=== PATIENT | female | born 1950 | race Caucasian/White ===

== ENCOUNTER 2023-09-22 19:58 | Inpatient (IN) | payer MEDICARE, SELFPAY ==
--- NOTE | 2023-09-22 | ECG_ITS ---
Test Reason : CHEST PAIN Blood Pressure : / mmHG Vent. Rate : 118 BPM Atrial Rate : 118 BPM P-R Int : 144 ms QRS Dur : 080 ms QT Int : 338 ms P-R-T Axes : 054 026 045 degrees QTc Int : 473 ms Sinus tachycardia Otherwise normal ECG No previous ECGs available Referred By: Generic ED Physician Electronically Signed By:NAM LLANOS MD
--- NOTE | ~2023-09-22 | CT_ITS ---
EXAMINATION: CT ANGIOGRAM OF THE CHEST WITH CONTRAST (CT PULMONARY ANGIOGRAM FOR PE) CLINICAL INFORMATION: Reason for Exam Bilateral PE COMPARISON: None available. TECHNIQUE: Prior to contrast administration, noncontrast localization images were obtained. Subsequently, multidetector volumetric imaging was performed from the thoracic inlet to below the diaphragms following the administration of 85 mL Omnipaque 350 intravenous contrast. No contrast reaction reported Sagittal, coronal, and MIP oblique sagittal reformatted images were obtained on the CT workstation, uploaded to PACS, and reviewed. This CT examination was performed using dose optimization techniques as appropriate, variously including the following: *Automated exposure control *Adjustment of mA and/or kV according to patient size (this includes techniques or standardized protocols for targeted exams where dose is matched to indication/reason for exam; i.e. extremities or head) *Use of iterative reconstruction technique Total exam dose-length product 428 mGy-cm FINDINGS: QUALITY OF STUDY/CONTRAST BOLUS: Suboptimal due to late bolus timing. The contrast timing is systemic arterial and not pulmonary arterial. PULMONARY ARTERIES: Sensitivity and specificity for pulmonary emboli is slightly limited due to the diminished contrast concentration within the pulmonary arteries. Acute pulmonary emboli are suspected within the segmental and subsegmental branches of the right lower and right middle lobes as well as the left lower lobe. Pulmonary arteries are normal in caliber. THORACIC AORTA: No aneurysm. LUNG: Minimal dependent atelectasis in the lower lobes. No consolidation, pneumothorax, or pleural effusion. Central airways are clear. PLEURA: No pleural effusion or pneumothorax. MEDIASTINUM: Normal heart size. No pericardial effusion. No hilar or mediastinal lymphadenopathy. No evidence of septal bowing or right heart strain. Small sliding-type hiatal hernia. CORONARY ARTERY CALCIFICATION: None visualized on this study. CHEST WALL/AXILLA: No axillary or internal mammary lymphadenopathy. OSSEOUS STRUCTURES: Diffuse idiopathic hyperostosis is evident in the midthoracic spine. No acute fractures. UPPER ABDOMEN: The common bile duct is dilated, likely related to prior cholecystectomy. No reflux of contrast into the hepatic veins to suggest elevated right heart pressures. CT/CT angio chest PE protocol IMPRESSION: Acute pulmonary emboli in the segmental and subsegmental branches of the right middle and lower lobes as well as the left lower lobe. No evidence of right heart strain. Sensitivity and specificity of this study are somewhat limited by bolus timing. VTE: positive.
--- NOTE | ~2023-09-22 | XR_ITS ---
EXAMINATION: XR CHEST CLINICAL INFORMATION: Chest pain. Shortness of breath. COMPARISON: None available. TECHNIQUE: Frontal view of the chest was obtained. FINDINGS: The heart is normal in size. The lungs are clear. There is no pleural effusion or pneumothorax. No acute osseous abnormality. XR/XR chest 1V IMPRESSION: No acute cardiopulmonary disease.
[2023-09-22 20:02] VITALS: BP 153/72; BP 158/88; PULSE 120; PULSE 123; RESP 14; TEMP 37.1; O2SAT 95; O2SAT 97; BMI 37.2
[2023-09-22 20:31] LABS: MANUAL DIFF FLAG NO
[2023-09-22 20:49] LABS: Lipase 28 U/L (8-78)
[2023-09-22 20:54] LABS: INTERNATIONAL NORM RATIO 1.5 (0.9-1.1); Prothrombin Time 17.7 SEC (11.1-13.3)
[2023-09-22 20:58] LABS: Basophils Percent Auto 0.5 % (0-2); Hematocrit 23.8 % (37.0-47.0); Hemoglobin 7.8 g/dl (12.0-16.0); Imm Gran Abs Auto 0.12 X10*3/uL (0.00-0.03); Imm Gran Pct Auto 1.4 % (0.0-0.4); Lymphocytes Absolute Auto 0.8 X10*3/uL (1.2-4.9); Mean Corpuscular HGB Conc 32.8 g/dl (31.0-35.0); Mean Corpuscular Hemoglobin 28.7 pg (27.0-33.0); Mean Corpuscular Volume 87.5 fL (80.0-98.0); Mean Platelet Volume 10.3 fL (9.4-12.3); Monocytes Absolute Auto 0.1 X10*3/uL (0.1-1.2); Neutrophils Absolute Auto 7.6 x10*3/uL (2.0-8.3); Neutrophils Percent Auto 88.1 % (45-73); Platelet Count 326 X10*3/uL (160-400); Red Blood Count 2.72 X10*6/uL (4.20-5.50); Red Cell Distribution Width 14.8 % (11.0-16.0); Troponin-I High Sensitivity 8.3 ng/L (<3.5-17.0); White Blood Count 8.7 X10*3/uL (4.8-10.8)
[2023-09-22 20:59] LABS: Alanine Aminotransferase 14 U/L (0-31); Albumin Level 3.7 g/dL (3.5-5.0); Alkaline Phosphatase 67 U/L (39-117); Anion Gap 17 (12-20); Aspartate Amino Transferase 14 U/L (5-31); Bilirubin Total 0.5 mg/dL (0.0-1.0); Blood Urea Nitrogen 37 mg/dL (9-16); Calcium 9.9 mg/dL (8.4-10.2); Carbon Dioxide 18 mmol/L (22-29); Chloride 105 mmol/L (96-108); Creatinine Clr Calc Pharmacy 45.8; Estimated Glomerular Filt Rate 47; Glucose Random 348 mg/dL (60-115); Potassium 3.9 mmol/L (3.3-5.1); Sodium 136 mmol/L (135-145); Total Protein 6.3 g/dL (6.5-8.0)
[2023-09-22 21:09] LABS: B Type Natriuretic Peptide 13 pg/mL (<100)
--- NOTE | 2023-09-22 21:22 | ED_ITS ---
HPI - Chest Pain General Chief Complaint: Chest Pain Stated Complaint: chest pain,blood in stool Time Seen by Provider: 09/22/23 21:21 Source: patient and family Mode of arrival: ambulatory History of Present Illness ED Provider: julio HELLER narrative: Patient is 73 years old came from [place] visiting her daughter comes here for increased shortness of breath and mid chest started. Patient was seen at [facility] on for shortness of breath and cp diagnose as bilateral PE and bilateral DVTs started on Eliquis saturating 95% at room not in any significant distress on arrival has been having chest pain and shortness on exertion since seen at [facility] also today patient noticed blood in the stool been having dark stool since Eliquis started Related Data Home Medications ?Medication ?Instructions ?Recorded ?Confirmed apixaban 5 mg tablet (Eliquis) mg PO 09/23/23 09/23/23 oxycodone 5 mg tablet mg PO 09/23/23 Allergies Allergy/AdvReac Type Severity Reaction Status Date / Time No Known Allergies Allergy Verified 09/22/23 20:03 [No Known Allergies*] Review of Systems 2 Review of Systems: Yes all other systems are reviewed and are negative [facility] Past Medical History Medical History (Updated 09/23/23 @ 22:48 by Rajesh Barrios MD) Hyperlipidemia Essential hypertension Obesity DVT (deep venous thrombosis) Pulmonary embolism Surgical History History of herniorrhaphy History of Hx of cholecystectomy Social History Social History Household Members: Family Housing: House Do you presently have visiting nurse or other home services: No Patient Tobacco Use Status: Never used Tobacco Second Hand Smoke Exposure: No service: No Physical Exam 2 Vital Signs: Vital Signs: Last Vital Signs Temp 97.7 F 09/23/23 11:30 Pulse 96 09/23/23 11:30 Resp 20 09/23/23 11:30 BP 125/69 09/23/23 11:30 Pulse Ox 98 09/23/23 11:30 O2 Del Method Room Air 09/23/23 11:30 BMI result Body Mass Index 37.2 Appearance: Alert. Oriented X3. No acute distress. Eyes: PERRLA, No Nystagmus ENT: Pharynx normal. Oral Mucosa moist Neck: Normal inspection. Neck supple. CVS: Normal heart rate and rhythm. Pulses normal. Respiratory: No respiratory distress. Equal air entry bilateral, no wheezing/rales/rhonchi Abdomen: Soft and nontender. Bowel sounds are present, no mass palpable, no CVA tenderness rectal: Fresh maroon blood on the finger Skin: Skin warm and dry. Normal skin color. Normal skin turgor. Extremities: No lower extremity edema. No calf tenderness Neuro: Oriented X 3. No motor deficit. No sensory deficit.No cerebellar signs , cranial nerves II-XII intact Medications Administered Generic Name Dose Route Start Last Admin Trade Name Mauro PRN Reason Stop Dose Admin Acetaminophen 975 mg 09/23/23 02:12 09/23/23 15:39 Acetaminophen 325 Mg Tablet PO 975 mg Q6H PRN Administration Pain, Mild (Pain Scale 1-3), fever or headache Insulin Human Lispro 0 unit 09/23/23 07:30 09/23/23 21:31 Insulin Lispro 100 Unit/Ml 3 Ml Vial SUBCUT 2 unit QIDACHS [facility] Administration Protocol Omeprazole 40 mg 09/23/23 06:30 09/23/23 07:26 Omeprazole 40 Mg Capsule.Dr PO 40 mg DAILY@0630 [facility] Administration Sodium Chloride 3 ml 09/23/23 08:00 09/23/23 21:36 0.9 % Sodium Chloride Flush 3 Ml Syringe IVFLUSH 3 ml QSHIFT [facility] Administration Discontinued Medications Generic Name Dose Route Start Last Admin Trade Name Mauro PRN Reason Stop Dose Admin Sodium Chloride 1,000 mls @ 999 mls/hr 09/22/23 21:57 09/23/23 00:22 Ns IV 09/22/23 22:57 Infused .Q1H1M ONE Infusion Sodium Chloride 100 mls @ 100 mls/hr 09/22/23 21:57 09/23/23 00:51 Ns IV 09/22/23 22:56 Infused ONCE ONE Infusion Sodium Chloride 1,000 mls @ 100 mls/hr 09/23/23 10:45 09/23/23 16:42 Ns IVCONT Infused .Q10H SRINATH Infusion Insulin Human Lispro 5 unit 09/22/23 22:11 09/22/23 22:53 Insulin Lispro 100 Unit/Ml 3 Ml Vial SUBCUT 09/22/23 22:12 5 unit ONCE ONE Administration Iohexol 85 ml 09/22/23 22:46 09/22/23 22:47 Iohexol 350 Mg/Ml 100 Ml Infus..Btl IV 09/22/23 22:47 85 ml ONCE ONE Administration Pantoprazole Sodium 80 mg 09/22/23 21:57 09/22/23 22:52 Pantoprazole Sodium 40 Mg/10 Ml Vial IVPUSH 09/22/23 21:58 80 mg ONCE ONE Administration Medical Decision Making Medical Decision Making [facility] Narrative: Patient with bilateral PE with bilateral DVT on [facility] diagnose on 09/05/23 on [facility] patient was admitted at [facility] venous Doppler showed bilateral peroneal DVT greater than [address] chest showed bilateral lobar segmental and subsegmental PE throughout all the lobes echo showed ejection fraction 65% without any regional wall motion abnormality normal RV function comes here as she been having chest pain since discharge from [facility] and for last 2 days having dark stool today had blood mixed with dark stool patient's hemoglobin was 10.5 hematocrit 33.7 on 09/04/2023 today is 7.8/23.8 CTA done here also showed bilateral pulmonary emboli patient with GI bleed on [facility] plan to admit transfuse for bleed GI workup and plan for IVC filter placement Differential Diagnosis Differential Diagnoses: The differential diagnosis associated with the presentation includes GI bleed/coagulopathy/diverticulitis/PE Admission/Observation Consideration of admission/observation: Escalation of care including admission/observation considered Consult Healthcare Provider Management of the patient was discussed with: Hospitalist Lab Data [facility] Lab Attestation statement: I reviewed the patient's lab results. 09/23/23 18:30 09/23/23 05:58 Labs: Lab Results 09/22/23 09/22/23 09/22/23 Range/Units 20:26 22:10 22:33 WBC 8.7 (4.8-10.8) X10*3/uL RBC 2.72 L (4.20-5.50) X10*6/uL Hgb 7.8 L (12.0-16.0) g/dl Hct 23.8 L (37.0-47.0) % MCV 87.5 (80.0-98.0) fL MCH 28.7 (27.0-33.0) pg MCHC 32.8 (31.0-35.0) g/dl RDW 14.8 (11.0-16.0) % Plt Count 326 (160-400) X10*3/uL MPV 10.3 (9.4-12.3) fL Immature Gran % (Auto) 1.4 H (0.0-0.4) % Neut % (Auto) 88.1 H (45-73) % Lymph % (Auto) 9.0 L (20-40) % [place] % (Auto) 1.0 L (2-11) % Eos % (Auto) 0.0 (0-4) % Baso % (Auto) 0.5 (0-2) % Lymph # (Auto) 0.8 L (1.2-4.9) X10*3/uL [place] # (Auto) 0.1 (0.1-1.2) X10*3/uL Eos # (Auto) 0.0 (0.0-0.4) X10*3/uL Baso # (Auto) 0.0 (0.0-0.2) X10*3/uL Abs Immat Gran (auto) 0.12 H (0.00-0.03) X10*3/uL Absolute Neuts (auto) 7.6 (2.0-8.3) x10*3/uL Absolute Nucleated RBC 0.000 (0.0-0.012) X10*3/uL Nucleated RBC % (auto) 0.0 (0.0-0.2) /100WBC PT 17.7 H (11.1-13.3) SEC INR 1.5 H (0.9-1.1) Sodium 136 (135-145) mmol/L Potassium 3.9 (3.3-5.1) mmol/L Chloride 105 (96-108) mmol/L Carbon Dioxide 18 L (22-29) mmol/L Anion Gap 17 (12-20) BUN 37 H (9-16) mg/dL Creatinine 1.12 (0.5-1.4) mg/dL Estim Creat Clear Calc 45.8 Estimated GFR 47 POC Glucose 252 H (60-115) mg/dL Random Glucose 348 H (60-115) mg/dL Calcium 9.9 (8.4-10.2) mg/dL Total Bilirubin 0.5 (0.0-1.0) mg/dL AST 14 (5-31) U/L ALT 14 (0-31) U/L Alkaline Phosphatase 67 (39-117) U/L Troponin I High Sens 8.3 (<3.5-17.0) ng/L B-Natriuretic Peptide 13 (<100) pg/mL Total Protein 6.3 L (6.5-8.0) g/dL Albumin 3.7 (3.5-5.0) g/dL Lipase 28 (8-78) U/L Stool Occult Blood (NEGATIVE) Blood Type A Positive Antibody Screen NEGATIVE Crossmatch See Detail 09/22/23 Range/Units 23:54 WBC (4.8-10.8) X10*3/uL RBC (4.20-5.50) X10*6/uL Hgb (12.0-16.0) g/dl Hct (37.0-47.0) % MCV (80.0-98.0) fL MCH (27.0-33.0) pg MCHC (31.0-35.0) g/dl RDW (11.0-16.0) % Plt Count (160-400) X10*3/uL MPV (9.4-12.3) fL Immature Gran % (Auto) (0.0-0.4) % Neut % (Auto) (45-73) % Lymph % (Auto) (20-40) % [place] % (Auto) (2-11) % Eos % (Auto) (0-4) % Baso % (Auto) (0-2) % Lymph # (Auto) (1.2-4.9) X10*3/uL [place] # (Auto) (0.1-1.2) X10*3/uL Eos # (Auto) (0.0-0.4) X10*3/uL Baso # (Auto) (0.0-0.2) X10*3/uL Abs Immat Gran (auto) (0.00-0.03) X10*3/uL Absolute Neuts (auto) (2.0-8.3) x10*3/uL Absolute Nucleated RBC (0.0-0.012) X10*3/uL Nucleated RBC % (auto) (0.0-0.2) /100WBC PT (11.1-13.3) SEC INR (0.9-1.1) Sodium (135-145) mmol/L Potassium (3.3-5.1) mmol/L Chloride (96-108) mmol/L Carbon Dioxide (22-29) mmol/L Anion Gap (12-20) BUN (9-16) mg/dL Creatinine (0.5-1.4) mg/dL Estim Creat Clear Calc Estimated GFR POC Glucose (60-115) mg/dL Random Glucose (60-115) mg/dL Calcium (8.4-10.2) mg/dL Total Bilirubin (0.0-1.0) mg/dL AST (5-31) U/L ALT (0-31) U/L Alkaline Phosphatase (39-117) U/L Troponin I High Sens (<3.5-17.0) ng/L B-Natriuretic Peptide (<100) pg/mL Total Protein (6.5-8.0) g/dL Albumin (3.5-5.0) g/dL Lipase (8-78) U/L Stool Occult Blood POSITIVE (NEGATIVE) Blood Type Antibody Screen Crossmatch Independent Interpretation I performed an independent interpretation of an: CT Scan Radiology Impression Discussion of test interpretation with radiology: I have reviewed the radiologist's reading. Radiologist Impression: [place] [id number] CT Scan Report Signed with Jose Patient: Blessing Rivera MR#: [id number] : 1950 Acct:[id number] Age/Sex: 73 / F ADM Date: 09/22/23 Loc: .ED Attending Dr: Ordering Physician: Rajesh Barrios MD Date of Service: 09/22/23 Procedure(s): CT angio chest PE protocol Accession Number(s): [id number] cc: Rajesh Barrios MD~ ADDENDUMThis critical result was discussed by telephone with Dr. Remy Barrios on 09/23/2023 at 12:50 AM. Addendum Dictated By: Ivan Cox MD Addendum Signed By: <Electronically signed by Ivan Cox MD in OV> 09/23/23 0050 Addendum Cosigned By: DD/ TD/TT: / EXAMINATION: CT ANGIOGRAM OF THE CHEST WITH CONTRAST (CT PULMONARY ANGIOGRAM FOR PE) CLINICAL INFORMATION: Reason for Exam Bilateral PE COMPARISON: None available. TECHNIQUE: Prior to contrast administration, noncontrast localization images were obtained. Subsequently, multidetector volumetric imaging was performed from the thoracic inlet to below the diaphragms following the administration of 85 mL Omnipaque 350 intravenous contrast. No contrast reaction reported Sagittal, coronal, and MIP oblique sagittal reformatted images were obtained on the CT workstation, uploaded to PACS, and reviewed. This CT examination was performed using dose optimization techniques as appropriate, variously including the following: *Automated exposure control *Adjustment of mA and/or kV according to patient size (this includes techniques or standardized protocols for targeted exams where dose is matched to indication/reason for exam; i.e. extremities or head) *Use of iterative reconstruction technique Total exam dose-length product 428 mGy-cm FINDINGS: QUALITY OF STUDY/CONTRAST BOLUS: Suboptimal due to late bolus timing. The contrast timing is systemic arterial and not pulmonary arterial. PULMONARY ARTERIES: Sensitivity and specificity for pulmonary emboli is slightly limited due to the diminished contrast concentration within the pulmonary arteries. Acute pulmonary emboli are suspected within the segmental and subsegmental branches of the right lower and right middle lobes as well as the left lower lobe. Pulmonary arteries are normal in caliber. THORACIC AORTA: No aneurysm. LUNG: Minimal dependent atelectasis in the lower lobes. No consolidation, pneumothorax, or pleural effusion. Central airways are clear. PLEURA: No pleural effusion or pneumothorax. MEDIASTINUM: Normal heart size. No pericardial effusion. No hilar or mediastinal lymphadenopathy. No evidence of septal bowing or right heart strain. Small sliding-type hiatal hernia. CORONARY ARTERY CALCIFICATION: None visualized on this study. CHEST WALL/AXILLA: No axillary or internal mammary lymphadenopathy. OSSEOUS STRUCTURES: Diffuse idiopathic hyperostosis is evident in the midthoracic spine. No acute fractures. UPPER ABDOMEN: The common bile duct is dilated, likely related to prior cholecystectomy. No reflux of contrast into the hepatic veins to suggest elevated right heart pressures. CT/CT angio chest PE protocol IMPRESSION: Acute pulmonary emboli in the segmental and subsegmental branches of the right middle and lower lobes as well as the left lower lobe. No evidence of right heart strain. Sensitivity and specificity of this study are somewhat limited by bolus timing. Critical Care Time Critical Care Time Critical Care Time: Yes Total Critical Care Time: 55 Attestation: The patient was critically ill with a high probability of imminent or life threatening deterioration. I spent greater than 60???minutes of discontinuous time evaluating the patient,delivering critical care at the bedside, discussing and evaluating pertinent data with consultants. Critical care time does not include time spent performing separately billable procedures or teaching. Total time spent performing critical care was ??55?minutes. Discharge Plan Discharge Clinical Impression: Rectal bleeding, Anemia Pulmonary embolism Qualifiers: Pulmonary embolism type: other Chronicity: acute Acute cor pulmonale presence: without acute cor pulmonale Qualified Code(s): I26.99 - Other pulmonary embolism without acute cor pulmonale Patient Disposition: Admitted As Inpatient Interventions: Admission Worksheet (ED) Last Done: 09/23/23 05:21 Discharge Date/Time: 09/23/23 05:56
[2023-09-22 22:13] LABS: Glucose, Whole Blood 252 mg/dL (60-115)
[2023-09-22] MEDS: iohexoL 350 MG/ML 100 ML INFUS..BTL 85 ML IV (22:47)
[2023-09-22] MEDS: Pantoprazole Sodium 40 MG/10 ML VIAL 80 MG IVPUSH (22:52)
[2023-09-22] MEDS: Insulin Lispro 100 UNIT/ML 3 ML VIAL SUBCUT (22:53)
[2023-09-22 23:08] VITALS: BP 127/60; PULSE 108; RESP 16; TEMP 36.8; O2SAT 98
--- NOTE | 2023-09-22 23:22 | PC.NURSE ---
late admin on administering meds d/t difficulty obtaining iv access. MD reyes in room obtaining ultrasound guided iv line. (previous iv line blew in CT scan)
[2023-09-22] MEDS: 0.9 % Sodium Chloride 1,000 ML 999 ML IV (23:25)
[2023-09-22 23:48] VITALS: BP 129/64; PULSE 108; RESP 20; TEMP 37; O2SAT 97
[2023-09-22 23:49] VITALS: BP 129/64; PULSE 106; RESP 20; TEMP 36.8
[2023-09-23] VITALS (7 sets, daily range): BP systolic 114–131; BP diastolic 54–74; PULSE 94–107; RESP 13–20; TEMP 36.4–37.1; O2SAT 98
[2023-09-23 00:13] LABS: OBS Int Ctl Valid YES; OBS1 POSITIVE (NEGATIVE)
--- NOTE | 2023-09-23 02:32 | P.HPHOSP_ITS ---
History of Present Illness Date of Service: 09/23/23 Attending physician on admission: Arie Fried Chief Complaint: Chest pain + rectal bleeding Blessing Banuelos is a 73 years old woman with past medical history significant for recent diagnosis of VTE on Eliquis, hyperlipidemia, essential hypertension and PVD presents to the emergency department complaining of severe chest pain associated with shortness of breath that started just started afternoon around 17:00. She reported bright red bleeding per rectum. Denied abdominal pain, nausea or vomiting. She also denied headache, palpitations, dizziness or cough. She denies history of GI bleeding. She underwent a EGD and colonoscopy about 2 years ago only remarkable for polyps that were removed and found not to be nonmalignant. She tobacco smoking, alcohol abuse or illicit drug use. In the ED, she was found to have mild tachycardia. Oxygen saturation is normal on room air. There is no tachypnea or hypotension. Blood workup is significant for low hemoglobin, 7.8. There is no leukocytosis and platelets are normal. INR is 1.5. There are no significant electrolyte imbalances. CO2 is 18, anion gap is normal, BUN is 37 and creatinine 1.2. Glucose is 348. LFTs are normal. BNP and troponin are normal. Chest CTA showed acute pulmonary emboli in the segmental and subsegmental branches of the right medial lower lobe as well as the left lower lobe without right heart strain. ECG showed sinus tachycardia with a heart rate 118 beats per minutes. No acute ischemic changes. ED tx: NS 1 L bolus, pantoprazole 80 mg IV, lispro 5 units subcut, 1 unit PRBC. Review of Systems 2 Review of Systems: All 12 systems were reviewed and normal except as noted in HPI. [facility] Medical History (Updated 09/23/23 @ 03:01 by Arie Fried MD) Hyperlipidemia Essential hypertension Obesity DVT (deep venous thrombosis) Pulmonary embolism Surgical History (Updated 09/23/23 @ 03:01 by Arie Fried MD) History of herniorrhaphy History of Hx of cholecystectomy Social History Smoked in Last 30 Days: No Use of substances other than those prescribed or required for medical reasons: No Advance Directives: No Advance Directives Information Provided: No Do you have a plan to hurt others: No Plan Meds Allergies Allergy/AdvReac Type Severity Reaction Status Date / Time No Known Allergies Allergy Verified 09/22/23 20:03 [No Known Allergies*] Active Medications: Current Medications Acetaminophen (Acetaminophen 325 Mg Tablet) 975 mg PO Q6H PRN PRN Reason: Pain, Mild (Pain Scale 1-3), fever or headache Sodium Chloride (0.9 % Sodium Chloride Flush 3 Ml Syringe) 3 ml IVFLUSH QSHIFT [facility] Home Medications ?Medication ?Instructions ?Recorded ?Confirmed ?Last Taken ?Type apixaban 5 mg tablet (Eliquis) mg PO 09/23/23 09/23/23 Unknown History oxycodone 5 mg tablet mg PO 09/23/23 Unknown History Physical Exam 2 Vital Signs and Narrative: Vital Signs: Last Vital Signs Temp 98.4 F 09/23/23 00:08 Pulse 107 H 09/23/23 00:44 Resp 15 09/23/23 00:44 BP 126/63 09/23/23 00:44 Pulse Ox 98 09/23/23 00:44 O2 Del Method Room Air 09/23/23 00:44 BMI result Body Mass Index 37.2 Constitutional - Awake and Alert, No apparent distress. Pleasant. Cooperative. Obese. HEENT - PERRLA EOMI. Normal sclerae. Heart - RRR, No murmurs. Lungs - Normal lung expansion, Normal respiratory effort, No respiratory distress, CTA bilaterally Abdomen - NT / ND; +BS; No rebound or guarding Extremities - no calf tenderness bilaterally, no swelling Musculoskeletal - Normal inspection, normal ROM Skin - Warm/Dry Neurological - Alert & oriented x3. No focal weakness grossly noted. Psychological - Appropriate affect Results Labs 09/22/23 20:26 09/22/23 20:26 Labs: Laboratory Results - last 24 hr 09/22/23 09/22/23 09/22/23 20:26 22:10 22:33 MCV 87.5 MCH 28.7 MCHC 32.8 RDW 14.8 Plt Count 326 MPV 10.3 Immature Gran % (Auto) 1.4 H Neut % (Auto) 88.1 H Lymph % (Auto) 9.0 L [place] % (Auto) 1.0 L Eos % (Auto) 0.0 Baso % (Auto) 0.5 Lymph # (Auto) 0.8 L [place] # (Auto) 0.1 Eos # (Auto) 0.0 Baso # (Auto) 0.0 Abs Immat Gran (auto) 0.12 H Absolute Neuts (auto) 7.6 Absolute Nucleated RBC 0.000 Nucleated RBC % (auto) 0.0 PT 17.7 H INR 1.5 H Anion Gap 17 Estim Creat Clear Calc 45.8 Estimated GFR 47 POC Glucose 252 H Random Glucose 348 H Calcium 9.9 Total Bilirubin 0.5 AST 14 ALT 14 Alkaline Phosphatase 67 Troponin I High Sens 8.3 B-Natriuretic Peptide 13 Total Protein 6.3 L Albumin 3.7 Lipase 28 Stool Occult Blood Blood Type A Positive Antibody Screen NEGATIVE Crossmatch See Detail 09/22/23 23:54 MCV MCH MCHC RDW Plt Count MPV Immature Gran % (Auto) Neut % (Auto) Lymph % (Auto) [place] % (Auto) Eos % (Auto) Baso % (Auto) Lymph # (Auto) [place] # (Auto) Eos # (Auto) Baso # (Auto) Abs Immat Gran (auto) Absolute Neuts (auto) Absolute Nucleated RBC Nucleated RBC % (auto) PT INR Anion Gap Estim Creat Clear Calc Estimated GFR POC Glucose Random Glucose Calcium Total Bilirubin AST ALT Alkaline Phosphatase Troponin I High Sens B-Natriuretic Peptide Total Protein Albumin Lipase Stool Occult Blood POSITIVE Blood Type Antibody Screen Crossmatch Imaging Radiologist's Impressions: Impressions Chest X-Ray 09/22/23 20:40 IMPRESSION: No acute cardiopulmonary disease. Chest CTA 09/22/23 22:52 IMPRESSION: Acute pulmonary emboli in the segmental and subsegmental branches of the right middle and lower lobes as well as the left lower lobe. No evidence of right heart strain. Sensitivity and specificity of this study are somewhat limited by bolus timing. VTE: positive. Assessment and Plan (1) Rectal bleeding: Status: Acute (2) Hyperglycemia: Status: Acute (3) Pulmonary embolism: Qualifiers: Chronicity: acute Acute cor pulmonale presence: without acute cor pulmonale Pulmonary embolism type: other Qualified Code(s): I26.99 - Other pulmonary embolism without acute cor pulmonale Status: Acute Plan Blessing Banuelos is a 73 y/o admitted with: * Chest pain, likely secondary to PE; resolved. Adequate oxygen saturation, no shortness on breath. ECG showed no acute changes. Unfortunately, anticoagulation is contraindicated due to acute bleeding. Admit to hospitalist service. Telemetry. IR consult for IVC placement. * Acute blood loss anemia secondary to rectal bleeding. Hold Eliquis. s/p 1 unit PRBC by ED. Continue to monitor H&H. Gastroenterology consult. * Hyperglycemia. Patient denies history of diabetes mellitus. Random blood glucose 348. Check hemoglobin A1c. Start treatment with insulin sliding scale for now. Diabetic diet. * Essential hypertension. Continue home meds. * Hyperlipidemia. Continue statin. * Morbid obesity. BMI 37.2 kg/m2. DVT prophylaxis: SCDs Code status: Full Patient will need hospitalization for at least 2 midnight for rectal bleeding treatment with PRBC transfusions, close monitoring H&H + VS; and inferior vena cava placement by IR due to underlying acute pulmonary embolism Quality Stroke Does the patient have a stroke diagnosis?: No VTE Prior VTE?: No VTE Risk Level:: Medical - moderate - high VTE Device Contraindication: N/A - Device Ordered VTE Drug Contraindication: Treatment Not Indicated
[2023-09-23 06:30] LABS: Hematocrit 27.2 % (37.0-47.0); Hemoglobin 8.8 g/dl (12.0-16.0); Mean Corpuscular HGB Conc 32.4 g/dl (31.0-35.0); Mean Corpuscular Volume 86.6 fL (80.0-98.0); Mean Platelet Volume 10.1 fL (9.4-12.3); Platelet Count 300 X10*3/uL (160-400); Red Blood Count 3.14 X10*6/uL (4.20-5.50); Red Cell Distribution Width 15.1 % (11.0-16.0); White Blood Count 12.8 X10*3/uL (4.8-10.8)
[2023-09-23 06:42] LABS: Anion Gap 12 (12-20); Blood Urea Nitrogen 29 mg/dL (9-16); Calcium 10.2 mg/dL (8.4-10.2); Carbon Dioxide 23 mmol/L (22-29); Chloride 107 mmol/L (96-108); Creatinine Clr Calc Pharmacy 52.4; Estimated Glomerular Filt Rate 55; Glucose Random 162 mg/dL (60-115); Potassium 4.3 mmol/L (3.3-5.1); Sodium 138 mmol/L (135-145)
--- NOTE | 2023-09-23 07:09 | PM.GICN ---
History of Present Illness Data of Consult Service Date: 09/23/23 Requesting physician: Vj Singh Primary Care Provider: None Physician HPI Reason for consult: rectal bleeding 73 year old woman with hx of of VTE on Eliqus, hyperlipidemia, essential hypertension and PVD who I am seeing for assessment for rectal bleeding Patient presented with 10/10 chest pain without radiation associated with shortness of breath that started 1 d ago. Denies sputum, wheezing or hemoptysis. She also noted rectal bleeding. No abdominal pain, nausea or vomiting. She also denied headache, palpitations, dizziness. Last EGD and colonoscopy about 2 years ago with non malignant polyps removed Chest CTA showed acute pulmonary emboli in the segmental and subsegmental branches of the right medial lower lobe as well as the left lower lobe without right heart strain. ECG showed sinus tachycardia. Baseline hgb not known, but this admission been stable around 8 g/dl Review of Systems Review of Systems: Constitutional : No Weight loss, No Fever, No Chills ENT/Mouth : No sore throat, No Rhinorrhea Eyes: No Swelling, No Redness Cardiovascular : No Chest Pain, No SOB, No Edema Respiratory : No Cough, No Sputum, No Wheezing Gastrointestinal : see HPI Genitourinary : NO Dysuria, No Urinary Frequency, No Hematuria, No Urgency Musculoskeletal : + joint pain, No Myalgias, No Joint Swelling Skin : No Skin Lesions, No rash Neuro : No Weakness, No Numbness, No Dizziness, No Headache Psych : No Anxiety/Panic, No Depression Heme/Lymph: No Bruising, No Lymphadenopathy Endocrine : No Polyuria, No Polydipsia All other systems reviewed and are negative. [facility] Past Medical History Medical History Hyperlipidemia Essential hypertension Obesity DVT (deep venous thrombosis) Pulmonary embolism Family History Pertinent family history: no fh of dvt Surgical History Surgical History History of herniorrhaphy History of Hx of cholecystectomy Social History Social History Household Members: Family Housing: House Do you presently have visiting nurse or other home services: No Patient Tobacco Use Status: Never used Tobacco Second Hand Smoke Exposure: No service: No Meds Allergies Allergy/AdvReac Type Severity Reaction Status Date / Time No Known Allergies Allergy Verified 09/22/23 20:03 [No Known Allergies*] Active Medications: Current Medications Acetaminophen (Acetaminophen 325 Mg Tablet) 975 mg PO Q6H PRN PRN Reason: Pain, Mild (Pain Scale 1-3), fever or headache Glucose (Glucose Gel 15 Gm Gel..Gram.) 15 gm PO Q15M PRN; Protocol PRN Reason: per Hypoglycemia Standing Ord. Dextrose (D10) 250 mls @ 750 mls/hr IV Q15M PRN; Protocol PRN Reason: per Hypoglycemia Standing Ord. Insulin Human Lispro (Insulin Lispro 100 Unit/Ml 3 Ml Vial) 0 unit SUBCUT QIDACHS [facility]; Protocol Omeprazole (Omeprazole 40 Mg Capsule.Dr) 40 mg PO DAILY@0630 [facility] Sodium Chloride (0.9 % Sodium Chloride Flush 3 Ml Syringe) 3 ml IVFLUSH [facility] Home Medications ?Medication ?Instructions ?Recorded ?Confirmed ?Last Taken ?Type apixaban 5 mg tablet (Eliquis) mg PO 09/23/23 09/23/23 Unknown History oxycodone 5 mg tablet mg PO 09/23/23 Unknown History Physical Exam Vital Signs: Vital Signs: Last Vital Signs Temp 98.7 F 09/23/23 06:18 Pulse 100 09/23/23 06:18 Resp 19 09/23/23 06:18 BP 131/68 09/23/23 06:18 Pulse Ox 98 09/23/23 06:18 O2 Del Method Room Air 09/23/23 06:18 BMI result Body Mass Index 37.2 EXAM: GENERAL: The patient is well developed and nontoxic. VITAL SIGNS:see workflow HEENT: Nonicteric sclerae, PERRLA, EOMI. Oropharynx clear. Moist mucous membranes. Conjunctivae appear well perfused. No thyroid mass. CHEST: Chest wall is nontender. HEART: Regular rate and rhythm without murmurs. LUNGS: Clear to auscultation bilaterally. ABDOMEN: Soft, positive bowel sounds, nontender, no organomegaly.no flank tenderness SKIN: No rash, no excessive bruising, petechiae, or purpura. NEUROLOGIC: Cranial nerves II-XII intact without motor/sensory deficit. Psych: normal affect Results Labs 09/23/23 13:28 09/23/23 05:58 Labs: Short CBC 09/22/23 09/23/23 Range/Units 20:26 05:58 WBC 8.7 12.8 H (4.8-10.8) X10*3/uL Hgb 7.8 L 8.8 L (12.0-16.0) g/dl Hct 23.8 L 27.2 L (37.0-47.0) % Plt Count 326 300 (160-400) X10*3/uL BMP 09/22/23 09/23/23 20:26 05:58 Sodium 136 138 Potassium 3.9 4.3 Chloride 105 107 Carbon Dioxide 18 L 23 BUN 37 H 29 H Creatinine 1.12 0.98 Calcium 9.9 10.2 Liver Function 09/22/23 Range/Units 20:26 Total Bilirubin 0.5 (0.0-1.0) mg/dL AST 14 (5-31) U/L ALT 14 (0-31) U/L Alkaline Phosphatase 67 (39-117) U/L Albumin 3.7 (3.5-5.0) g/dL Imaging CT scan - chest: Attestation: I personally reviewed and interpreted this imaging study as follows: (PTE) Assessment and Plan (1) Rectal bleeding: Status: Acute (2) Pulmonary embolism: Qualifiers: Pulmonary embolism type: other Chronicity: acute Acute cor pulmonale presence: without acute cor pulmonale Qualified Code(s): I26.99 - Other pulmonary embolism without acute cor pulmonale Status: Acute Plan 1/ Rectal bleeding whilst on eliquis, also with PTE, awaiting IVC filter--need to r/o underlying neoplasia PLAN: 1/ transfuse for hgb <7 g/dl 2/ colonoscopy +/- EGD on Tuesday, pls keep on clears Tuesday and [place] Procedures Date of Service Date of Service: 09/23/23
[2023-09-23 07:24] LABS: Estimated Average Glucose 148 mg/dL; Hemoglobin A1c % 6.8 % (<6.0)
[2023-09-23] MEDS: Omeprazole 40 MG CAPSULE.DR PO (07:26)
[2023-09-23 08:39] LABS: Glucose, Whole Blood 181 mg/dL (60-115)
--- NOTE | 2023-09-23 09:14 | MHC.CM.PN ---
CM met with Patient at bedside with the assist of a [facility] [employer] and assisted Patient with the completion of a HCP;she named her Daughter/Rupa as her Agent.Patient lives in a house in [place] with her other Daughter/Brianna and she uses a cane to assist with mobility.Patient's PCP is Dr. Reynaldo Ghosh, in [place].
[2023-09-23] MEDS: Insulin Lispro 100 UNIT/ML 3 ML VIAL SUBCUT ×2 (10:23→21:31)
[2023-09-23] MEDS: 0.9 % Sodium Chloride Flush 3 ML SYRINGE IVFLUSH ×3 (10:25→21:36)
--- NOTE | 2023-09-23 10:36 | PM.CNGS ---
History of Present Illness Consult details Consult date: 09/23/23 Reason for consult: other (PE) Narrative: 73-year-old female with a medical history significant for DVT while on Eliquis. She presented to the emergency room complaining of chest discomfort. She also reported some bright red blood per rectum. Upon workup she was found to have a PE. In the emergency room she was bolused fluid and transfused 1 unit of packed red blood cells. CTA demonstrated acute pulmonary embolism in the segmental and subsegmental of the right middle lobe and lower lobes as well as left lower lobe. There was no evidence of heart strain. Review of Systems Review of Systems: Yes all other systems are reviewed and are negative Constitutional: Constitutional: Reports no additional constitutional complaints ENT: Reports Normal hearing present Cardiovascular: Cardiovascular: Denies chest pain, Denies chest pain at rest, Denies chest pain with activity and Denies pedal edema Respiratory: Respiratory: Denies cough Gastrointestinal: Gastrointestinal: Denies abdominal pain Musculoskeletal: Musculoskeletal: Denies abnormal gait, Denies muscle cramps and Denies radiating pain into limb Integumentary/Breasts: Skin/Breast: Denies skin ulcer and Denies wounds Neurologic: Reports Normal hearing present and Denies abnormal gait Psychiatric: Psychiatric: Reports no additional psychiatric complaints PMFSH Past Medical History Medical History Hyperlipidemia Essential hypertension Obesity DVT (deep venous thrombosis) Pulmonary embolism Surgical History Surgical History History of herniorrhaphy History of Hx of cholecystectomy Social History Social History Household Members: Family Housing: House Do you presently have visiting nurse or other home services: No Patient Tobacco Use Status: Never used Tobacco Second Hand Smoke Exposure: No service: No Meds Allergies Allergy/AdvReac Type Severity Reaction Status Date / Time No Known Allergies Allergy Verified 09/22/23 20:03 [No Known Allergies*] Active Medications: Current Medications Acetaminophen (Acetaminophen 325 Mg Tablet) 975 mg PO Q6H PRN PRN Reason: Pain, Mild (Pain Scale 1-3), fever or headache Glucose (Glucose Gel 15 Gm Gel..Gram.) 15 gm PO Q15M PRN; Protocol PRN Reason: per Hypoglycemia Standing Ord. Dextrose (D10) 250 mls @ 750 mls/hr IV Q15M PRN; Protocol PRN Reason: per Hypoglycemia Standing Ord. Insulin Human Lispro (Insulin Lispro 100 Unit/Ml 3 Ml Vial) 0 unit SUBCUT QIDACHS [facility]; Protocol Last Admin: 09/23/23 10:23 Dose: 2 unit Omeprazole (Omeprazole 40 Mg Capsule.Dr) 40 mg PO DAILY@0630 [facility] Last Admin: 09/23/23 07:26 Dose: 40 mg Sodium Chloride (0.9 % Sodium Chloride Flush 3 Ml Syringe) [facility] Last Admin: 09/23/23 10:25 Dose: 3 ml Home Medications ?Medication ?Instructions ?Recorded ?Confirmed ?Last Taken ?Type apixaban 5 mg tablet (Eliquis) mg PO 09/23/23 09/23/23 Unknown History oxycodone 5 mg tablet mg PO 09/23/23 Unknown History Physical Exam Vital Signs: Vital Signs: Last Vital Signs Temp 97.6 F 09/23/23 08:00 Pulse 99 09/23/23 08:00 Resp 18 09/23/23 08:00 BP 128/74 09/23/23 08:00 Pulse Ox 98 09/23/23 08:00 O2 Del Method Room Air 09/23/23 08:00 BMI result Body Mass Index 37.2 Const: General: cooperative, healthy appearing and comfortable Orientation/consciousness: oriented to person, oriented to place and oriented to time HEENT: Head: Yes normal to inspection Neck: Neck: Yes normal visual inspection Carotids: no bruits Chest: Chest palpation & inspection: normal inspection of the chest Resp: Effort & Inspection: normal respiratory effort and able to speak in complete sentences Auscultation: clear to auscultation bilaterally, no crackles, no rales, no rhonchi and no wheezes Cardio: Rate: regular rate Rhythm: regular rhythm Heart sounds: S1 normal heart sound present and S2 normal heart sound present Bruits: no carotid bruits Peripheral pulses: Peripheral pulses 2+ throughout GI: Inspection: Yes normal to inspection Skin: Wounds: no wounds Hair: normal Neuro: General: oriented to person, oriented to place and oriented to time Cranial nerves: Yes CN's II-XII intact bilaterally and Yes Normal hearing present Cognition (Neuro): normal cognition Motor exam (neuro): 5/5 motor strength present throughout Extrem: Other: venous exam: No significant superficial varicosities or spider telangiectasias, minimal edema General: No clubbing, No cyanosis and No edema Psych: Appearance: grossly normal Mental Status: mental status grossly normal Speech and movement: Normal speech and movement present Results Labs 09/23/23 05:58 09/23/23 05:58 Labs: Abnormal lab results 09/22/23 09/22/23 09/22/23 Range/Units 20:26 22:10 22:33 WBC (4.8-10.8) X10*3/uL RBC 2.72 L (4.20-5.50) X10*6/uL Hgb 7.8 L (12.0-16.0) g/dl Hct 23.8 L (37.0-47.0) % Immature Gran % (Auto) 1.4 H (0.0-0.4) % Neut % (Auto) 88.1 H (45-73) % Lymph % (Auto) 9.0 L (20-40) % [place] % (Auto) 1.0 L (2-11) % Lymph # (Auto) 0.8 L (1.2-4.9) X10*3/uL Abs Immat Gran (auto) 0.12 H (0.00-0.03) X10*3/uL PT 17.7 H (11.1-13.3) SEC INR 1.5 H (0.9-1.1) Carbon Dioxide 18 L (22-29) mmol/L BUN 37 H (9-16) mg/dL POC Glucose 252 H (60-115) mg/dL Random Glucose 348 H (60-115) mg/dL Hemoglobin A1c % (<6.0) % Total Protein 6.3 L (6.5-8.0) g/dL Crossmatch See Detail 09/23/23 09/23/23 Range/Units 05:58 08:35 WBC 12.8 H (4.8-10.8) X10*3/uL RBC 3.14 L (4.20-5.50) X10*6/uL Hgb 8.8 L (12.0-16.0) g/dl Hct 27.2 L (37.0-47.0) % Immature Gran % (Auto) (0.0-0.4) % Neut % (Auto) (45-73) % Lymph % (Auto) (20-40) % [place] % (Auto) (2-11) % Lymph # (Auto) (1.2-4.9) X10*3/uL Abs Immat Gran (auto) (0.00-0.03) X10*3/uL PT (11.1-13.3) SEC INR (0.9-1.1) Carbon Dioxide (22-29) mmol/L BUN 29 H (9-16) mg/dL POC Glucose 181 H (60-115) mg/dL Random Glucose 162 H (60-115) mg/dL Hemoglobin A1c % 6.8 H (<6.0) % Total Protein (6.5-8.0) g/dL Crossmatch Short CBC 09/22/23 09/23/23 Range/Units 20:26 05:58 WBC 8.7 12.8 H (4.8-10.8) X10*3/uL Hgb 7.8 L 8.8 L (12.0-16.0) g/dl Hct 23.8 L 27.2 L (37.0-47.0) % Plt Count 326 300 (160-400) X10*3/uL BMP 09/22/23 09/23/23 20:26 05:58 Sodium 136 138 Potassium 3.9 4.3 Chloride 105 107 Carbon Dioxide 18 L 23 BUN 37 H 29 H Creatinine 1.12 0.98 Calcium 9.9 10.2 Liver Function 09/22/23 Range/Units 20:26 Total Bilirubin 0.5 (0.0-1.0) mg/dL AST 14 (5-31) U/L ALT 14 (0-31) U/L Alkaline Phosphatase 67 (39-117) U/L Albumin 3.7 (3.5-5.0) g/dL All other labs normal. Assessment and Plan (1) Pulmonary embolism: Qualifiers: Pulmonary embolism type: other Chronicity: acute Acute cor pulmonale presence: without acute cor pulmonale Qualified Code(s): I26.99 - Other pulmonary embolism without acute cor pulmonale Status: Acute Plan In short patient has acute pulmonary embolism while anticoagulated. In addition she does have a DVT. She will require IVC filter placement. Risks benefits complications of the procedure were discussed in detail with the patient she understood and consented. We will try to get her on as soon as possible. Thank you for allowing us to assist in her care. Procedures Date of Service Date of Service: 09/23/23
[2023-09-23 11:09] LABS: Glucose, Whole Blood 140 mg/dL (60-115)
[2023-09-23] MEDS: 0.9 % Sodium Chloride 1,000 ML 100 ML IVCONT (11:49)
--- NOTE | 2023-09-23 12:53 | W.PM.OPN ---
Operative Note Operative Note Date of Service: 09/23/23 Narrative: Angiogram report from [facility] Preoperative diagnosis: Deep venous thrombosis with PE Postoperative diagnosis: Same Procedure: 1. Ultrasound-guided right common femoral vein access 2. Inferior vena cavogram 3. Placement of inferior vena cava filter Surgeon:Lawrence Blevins M.D., FACS, RPVI [employer] Professional:None Anesthesia: Local only Specimens:none Drains:none Estimated blood loss: Less than 10 ml Implant: Bard Ml retrievable vena cava filter Indications: Pleasant 73-year-old female with a prior history of DVT who was anticoagulated on Eliquis. She presented to the hospital with shortness of breath and was found to have a PE along with a GI bleed. She now presents for IVC filter placement The patient has signed the informed consent after reviewing risks, complications, benefits, and alternatives previously discussed with the patient. The patient was given the opportunity to ask any additional questions or voice any concerns. All questions were answered to the patient's satisfaction. Procedure in detail: Patient was brought to the angiography suite prior to which a time-out was called for patient identification and site verification. Bilateral groins were prepped and draped in the standard surgical fashion. Under ultrasound guidance right common femoral vein was punctured with micro puncture needle and wire. Subsequently a precision 5 Taiwanese sheath was then placed. Bentson wire was advanced to the level of the vena cava. Vena cavogram was then undertaken through the 5 Taiwanese sheath. This was a baseline study to define the variant anatomy, caval size, location and number of renal veins, and to evaluate for ileo caval thrombus. Under direct fluoroscopic guidance we exchanged out the 5 Taiwanese sheath for the Bard Kingf[place] sheath. We brought the filter into position. This was then subsequently deployed. The inner cannula was then removed. Through the sheath a hand injection was performed to assess filter position. Once this was accomplished the sheath was then removed, and hemostasis was achieved with 10 minutes of direct compression. No immediate complications occurred and the patient was returned to the recovery suite with no complications Interpretation of films: 1. Ultrasound demonstrates appropriate femoral vein puncture. Image of which was saved. 2. There was no ileal caval thrombus noted 3. There are single renal veins bilaterally and the IVC is normal in caliber. There is no aberrant anatomy. 4. The filter was deployed appropriately and position below the lowest renal vein. Conclusion: 1. Successful placement of Bard Ml IVC filter 2. Anticoagulation status: Resume regular anticoagulation as indicated 4 hours post filter placement This note is constructed using voice recognition software. While every effort has been made to ensure accuracy, customer support manager errors may have been included. Thank you for allowing me to participate in the care of your patient. Yours sincerely, Lawrence Blevins MD, FACS, R.P.V.I.
[2023-09-23 13:40] LABS: Hematocrit 25.4 % (37.0-47.0); Hemoglobin 8.4 g/dl (12.0-16.0)
--- NOTE | 2023-09-23 14:20 | PM.EVENT ---
Event Note Date of Service: 09/23/23 Event Note: Seen and examined this morning Admitted earlier this morning due to GI bleeding/anemia Patient observed resting comfortably in bed, denies dizziness Acute blood loss anemia due to acute GI bleed In the setting of anticoagulation with Eliquis Eliquis on hold s/p blood transfusion in ED Follow q.6 hours H/H GI consult pending Bilateral PE/?b/l DVT Initially diagnosed September 02 at [facility] on hold due to acute GI bleed Seen by vascular surgery, plan for IVC filter placement Attempting to obtain records from [facility] Remainder of plan as per admission H&P med rec pending at this time. placed called to pharmacy to make them aware Time Spent With Patient Time: Total time managing care of this patient today ____ minutes.
--- NOTE | 2023-09-23 14:51 | PHA.MEDREC ---
Pharmacy Consult ? Medication Reconciliation Pharmacy has completed the medication reconciliation. Spoke to patient at bedside via shower attendant, she stated that she had been started on Apixaban and Oxycodone but that's all she knew, did not have them with her at bedside. She stated she takes Lipitor and Norvasc but her daughter has those. I spoke to the daughter over the phone but she did not speak much lao and couldn't tell me about the medications.
[2023-09-23] MEDS: Acetaminophen 325 MG TABLET 975 MG PO (15:39)
[2023-09-23 16:06] LABS: Glucose, Whole Blood 108 mg/dL (60-115)
[2023-09-23 18:43] LABS: Hematocrit 25.8 % (37.0-47.0); Hemoglobin 8.6 g/dl (12.0-16.0)
[2023-09-23 20:16] LABS: Glucose, Whole Blood 183 mg/dL (60-115)
[2023-09-24 00:42] LABS: Hematocrit 23.8 % (37.0-47.0); Hemoglobin 7.9 g/dl (12.0-16.0)
[2023-09-24] MEDS: Acetaminophen 325 MG TABLET 975 MG PO ×2 (05:30→18:05)
[2023-09-24] MEDS: Omeprazole 40 MG CAPSULE.DR PO (05:31)
[2023-09-24 07:20] LABS: Hemoglobin 8.2 g/dl (12.0-16.0); Mean Corpuscular HGB Conc 32.8 g/dl (31.0-35.0); Mean Corpuscular Hemoglobin 28.5 pg (27.0-33.0); Mean Corpuscular Volume 86.8 fL (80.0-98.0); Mean Platelet Volume 10.1 fL (9.4-12.3); NRBC Pct Auto 0.2 /100WBC (0.0-0.2); Platelet Count 305 X10*3/uL (160-400); Red Blood Count 2.88 X10*6/uL (4.20-5.50); Red Cell Distribution Width 16.1 % (11.0-16.0); White Blood Count 10.6 X10*3/uL (4.8-10.8)
[2023-09-24 07:30] VITALS: BP 127/69; PULSE 88; RESP 18; TEMP 36.4; O2SAT 97
[2023-09-24 07:56] LABS: Glucose, Whole Blood 95 mg/dL (60-115)
[2023-09-24] MEDS: 0.9 % Sodium Chloride Flush 3 ML SYRINGE IVFLUSH ×3 (08:37→20:44)
--- NOTE | 2023-09-24 09:09 | PHA.MEDREC ---
Pharmacy Consult ? Medication Reconciliation Pharmacy has completed the medication reconciliation.Med rec revisited today, patient is from [place] and is prescribed many medications, but has not been taking consistently. Verified current med list with help of an executive director, family member and bottles. Patient was recently hospitalized and also had discharge instructions from recent hospital course.
[2023-09-24] MEDS: Butalb/Acetamin/Caff 50/325/40 TABLET 1 TAB PO (10:55)
[2023-09-24 11:43] LABS: Glucose, Whole Blood 129 mg/dL (60-115)
[2023-09-24 11:54] VITALS: BP 124/69; PULSE 84; RESP 18; TEMP 36.2; O2SAT 98
--- NOTE | 2023-09-24 12:49 | HO.PM.IMPN ---
Subjective Subjective Date of Service: 09/24/23 Interval History: Seen and examined this morning Follow-up for rectal bleeding No further bleeding overnight, H/H has remained stable Denies dizziness, chest pain, shortness of breath. Reporting mild headache Review of Systems Constitutional : No Weight loss, No Fever, No Chills ENT/Mouth : No sore throat, No Rhinorrhea Eyes: No Swelling, No Redness Cardiovascular : No Chest Pain, No SOB, No Edema Respiratory : No Cough, No Sputum, No Wheezing Gastrointestinal : see HPI Genitourinary : NO Dysuria, No Urinary Frequency, No Hematuria, No Urgency Musculoskeletal : + joint pain, No Myalgias, No Joint Swelling Skin : No Skin Lesions, No rash Neuro : No Weakness, No Numbness, No Dizziness, No Headache Psych : No Anxiety/Panic, No Depression Heme/Lymph: No Bruising, No Lymphadenopathy Endocrine : No Polyuria, No Polydipsia All other systems reviewed and are negative. Review of Systems: Yes all other systems are reviewed and are negative Constitutional Constitutional: Denies chills and Denies fever(s) Cardiovascular Cardiovascular: Denies chest pain, Denies palpitations and Denies dyspnea Respiratory Respiratory: Denies cough and Denies dyspnea Gastrointestinal Gastrointestinal: Denies abdominal pain Musculoskeletal Musculoskeletal: Denies abnormal gait, Denies muscle cramps and Denies radiating pain into limb Integumentary/Breasts Skin/Breast: Denies skin ulcer and Denies wounds Neurologic Neurologic: Denies abnormal gait Psychiatric Psychiatric: Reports no additional psychiatric complaints Endocrine Endocrine: Denies palpitations Physical Exam Vital Signs: Vital Signs: Last Vital Signs Temp 97.2 F 09/24/23 11:54 Pulse 84 09/24/23 11:54 Resp 18 09/24/23 11:54 BP 124/69 09/24/23 11:54 Pulse Ox 98 09/24/23 11:54 O2 Del Method Room Air 09/24/23 11:54 BMI result Body Mass Index 37.2 Const: General: cooperative, comfortable, no acute distress, alert and awake Nutritional Appearance: overweight Orientation/consciousness: patient oriented x3 Resp: Effort & Inspection: normal respiratory effort, able to speak in complete sentences, no respiratory distress and no use of accessory muscles Auscultation: clear to auscultation bilaterally Cardio: Rate: regular rate GI: Inspection: No distended Palpation (GI): Soft to palpation and nontender Neuro: General: patient oriented x3, moves all extremities and CN's II-XI intact bilaterally Extrem: General: Yes no pedal edema Objective Data Active Medications Acetaminophen (Acetaminophen 325 Mg Tablet) 975 mg PO Q6H PRN PRN Reason: Pain, Mild (Pain Scale 1-3), fever or headache Last Admin: 09/24/23 05:30 Dose: 975 mg Documented By: LORETO Glucose (Glucose Gel 15 Gm Gel..Gram.) 15 gm PO Q15M PRN; Protocol PRN Reason: per Hypoglycemia Standing Ord. Dextrose (D10) 250 mls @ 750 mls/hr IV Q15M PRN; Protocol PRN Reason: per Hypoglycemia Standing Ord. Insulin Human Lispro (Insulin Lispro 100 Unit/Ml 3 Ml Vial) 0 unit SUBCUT QIDACHS [facility]; Protocol Last Admin: 09/24/23 12:00 Dose: Not Given Documented By: TIA Non-Admin Reason: No Insulin Coverage Omeprazole (Omeprazole 40 Mg Capsule.) 40 mg PO DAILY@0630 [facility] Last Admin: 09/24/23 05:31 Dose: 40 mg Documented By: LORETO Polyethylene Glycol/Electrolytes (Peg 3350/Na Sulf,Bicarb,Cl/Kcl 4,000 Ml Soln.Recon) 4,000 ml PO ONCE ONE Stop: 09/25/23 18:31 Sodium Chloride (0.9 % Sodium Chloride Flush 3 Ml Syringe) [facility] Last Admin: 09/24/23 08:37 Dose: 3 ml Documented By: TIA Labs 09/24/23 06:45 09/23/23 05:58 Labs: Laboratory Results - last 24 hr 09/23/23 09/23/23 09/24/23 16:03 20:10 06:45 MCV 86.8 MCH 28.5 MCHC 32.8 RDW 16.1 H Plt Count 305 MPV 10.1 Absolute Nucleated RBC 0.020 H Nucleated RBC % (auto) 0.2 POC Glucose 108 183 H 09/24/23 09/24/23 07:39 11:39 MCV MCH MCHC RDW Plt Count MPV Absolute Nucleated RBC Nucleated RBC % (auto) POC Glucose 95 129 H Assessment and Plan (1) Rectal bleeding: Status: Acute (2) Pulmonary embolism: Status: Acute Plan This is 73-year-old Yi-speaking female visiting from [place] who was recently diagnosed with bilateral PE and bilateral DVT earlier this month at [facility] who presents to the emergency department with 2 weeks of rectal bleeding Acute blood loss anemia due to acute GI bleed In the setting of anticoagulation with Eliquis Eliquis on hold s/p blood transfusion in ED H/H has remained stable continue PPI Seen by GI, plan for colonoscopy on Tuesday, clear liquid diet on Tuesday, NPO Tuesday night at midnight Bilateral PE/b/l DVT diagnosed September 02 at [facility]. thought to be provoked due to recent travel from [place] per records from [facility] right heart strain Eliquis on hold due to acute GI bleed Seen by vascular surgery, s/p IVC filter placement 09/22 Hypertension Blood pressure has been stable off of home medication Med rec finally completed this morning, hold Norvasc, hydrochlorothiazide, losartan, Lasix T2DM newly diagnosed hba1c 6.8, not on meds at baseline consider d/c with metformin continue SSI coverage ?chronic pain Continue gabapentin, oxycodone Hyperlipidemia Hold statin PAD statin, cilostazol on hold dvt ppx - Eliquis on hold due to acute GI bleed Patient requires ongoing inpatient hospital stay for management of GI bleeding and plan for colonoscopy on Tuesday Quality Stroke Does the patient have a stroke diagnosis?: No VTE Prior VTE?: No VTE Risk Level:: Medical - moderate - high VTE Device Contraindication: N/A - Device Ordered VTE Drug Contraindication: Treatment Not Indicated
[2023-09-24] MEDS: Gabapentin 400 MG CAPSULE PO ×2 (14:36→20:42)
[2023-09-24 15:56] LABS: Glucose, Whole Blood 112 mg/dL (60-115)
[2023-09-24 20:44] LABS: Glucose, Whole Blood 145 mg/dL (60-115)
[2023-09-24 21:55] VITALS: BP 121/65; PULSE 88; RESP 18; TEMP 36.5; O2SAT 98
[2023-09-25 05:54] VITALS: BP 115/63; PULSE 81; RESP 18; TEMP 36.6; O2SAT 97
[2023-09-25] MEDS: Omeprazole 40 MG CAPSULE.DR PO (06:00)
[2023-09-25] MEDS: Acetaminophen 325 MG TABLET 975 MG PO (06:00)
[2023-09-25 06:57] LABS: Hematocrit 26.2 % (37.0-47.0); Hemoglobin 8.5 g/dl (12.0-16.0); Mean Corpuscular HGB Conc 32.4 g/dl (31.0-35.0); Mean Corpuscular Hemoglobin 28.5 pg (27.0-33.0); Mean Corpuscular Volume 87.9 fL (80.0-98.0); NRBC Pct Auto 0.2 /100WBC (0.0-0.2); Platelet Count 302 X10*3/uL (160-400); Red Blood Count 2.98 X10*6/uL (4.20-5.50); Red Cell Distribution Width 16.1 % (11.0-16.0)
[2023-09-25 07:38] LABS: Glucose, Whole Blood 115 mg/dL (60-115)
[2023-09-25 07:54] VITALS: BP 127/68; PULSE 82; RESP 18; TEMP 36.6; O2SAT 92
[2023-09-25] MEDS: oxyCODONE HCl Immed Release 5 MG TABLET PO ×2 (08:39→16:08)
[2023-09-25] MEDS: Gabapentin 400 MG CAPSULE PO ×3 (08:40→20:22)
[2023-09-25] MEDS: 0.9 % Sodium Chloride Flush 3 ML SYRINGE IVFLUSH ×2 (08:40→16:08)
--- NOTE | 2023-09-25 10:38 | P.PNIM_ITS ---
Subjective Subjective Date of Service: 09/25/23 Interval History: f/u acute Gib, no acitive bleed, H/H stable, hemodynamically stable. Colonoscopy tomorrow Physical Exam 2 Vital Signs: Vital Signs: Last Vital Signs Temp 97.8 F 09/25/23 07:54 Pulse 82 09/25/23 07:54 Resp 18 09/25/23 07:54 BP 127/68 09/25/23 07:54 Pulse Ox 92 09/25/23 07:54 O2 Del Method Room Air 09/25/23 07:54 BMI result Body Mass Index 37.2 General: AO X 3, no acute distress Resp: CTA bilateral CVS: S1,S2,RRR GI: +BS, NT, no distention Skin: No rash Neuro: motor grossly intact Psych: appropriate affect Objective Data Active Medications Acetaminophen (Acetaminophen 325 Mg Tablet) 975 mg PO Q6H PRN PRN Reason: Pain, Mild (Pain Scale 1-3), fever or headache Last Admin: 09/25/23 06:00 Dose: 975 mg Documented By: ILIANA Acetaminophen/Butalbital/Caffeine (Butalb/Acetamin/Caff 50/325/40 Tablet) 1 tab PO Q6H PRN PRN Reason: Headache Gabapentin (Gabapentin 400 Mg Capsule) 400 mg PO TID [facility] Last Admin: 09/25/23 08:40 Dose: 400 mg Documented By: TIA Glucose (Glucose Gel 15 Gm Gel..Gram.) 15 gm PO Q15M PRN; Protocol PRN Reason: per Hypoglycemia Standing Ord. Dextrose (D10) 250 mls @ 750 mls/hr IV Q15M PRN; Protocol PRN Reason: per Hypoglycemia Standing Ord. Insulin Human Lispro (Insulin Lispro 100 Unit/Ml 3 Ml Vial) 0 unit SUBCUT QIDACHS [facility]; Protocol Last Admin: 09/25/23 07:58 Dose: Not Given Documented By: TIA Non-Admin Reason: No Insulin Coverage Omeprazole (Omeprazole 40 Mg Capsule.Dr) 40 mg PO DAILY@629 [facility] Last Admin: 09/25/23 06:00 Dose: 40 mg Documented By: ILIANA Oxycodone HCl (Oxycodone Hcl Immed Release 5 Mg Tablet) 5 mg PO Q4H PRN PRN Reason: Pain (Scale Score 4-6) Last Admin: 09/25/23 08:39 Dose: 5 mg Documented By: TIA Polyethylene Glycol/Electrolytes (Peg 3350/Na Sulf,Bicarb,Cl/Kcl 4,000 Ml Soln.Recon) 4,000 ml PO ONCE ONE Stop: 09/25/23 18:31 Sodium Chloride (0.9 % Sodium Chloride Flush 3 Ml Syringe) 3 ml IVFLUSH QSHIFT [facility] Last Admin: 09/25/23 08:40 Dose: 3 ml Documented By: TIA Labs 09/25/23 06:34 09/23/23 05:58 Labs: Laboratory Results - last 24 hr 09/24/23 09/24/23 09/24/23 11:39 15:23 20:37 MCV MCH MCHC RDW Plt Count MPV Absolute Nucleated RBC Nucleated RBC % (auto) POC Glucose 129 H 112 145 H 09/25/23 09/25/23 06:34 07:31 MCV 87.9 MCH 28.5 MCHC 32.4 RDW 16.1 H Plt Count 302 MPV 10.0 Absolute Nucleated RBC 0.020 H Nucleated RBC % (auto) 0.2 POC Glucose 115 Assessment and Plan (1) Rectal bleeding: Status: Acute (2) Pulmonary embolism: Status: Acute Plan This is 73-year-old Divehi-speaking female visiting from [place] who was recently diagnosed with bilateral PE and bilateral DVT earlier this month at [facility] who presents to the emergency department with 2 weeks of rectal bleeding Acute blood loss anemia due to acute GI bleed In the setting of anticoagulation with Eliquis Eliquis on hold s/p blood transfusion in ED H/H has remained stable continue PPI For colonoscopy Tuesday09/26/23 Bilateral PE/b/l DVT diagnosed September 02 at [facility]. thought to be provoked due to recent travel from [place] per records from [facility] right heart strain Eliquis on hold due to acute GI bleed Seen by vascular surgery, s/p IVC filter placement 09/22 Hypertension Blood pressure has been stable off of home medication hold Norvasc, hydrochlorothiazide, losartan, Lasix T2DM newly diagnosed hba1c 6.8, not on meds at baseline consider d/c with metformin continue SSI coverage ?chronic pain Continue gabapentin, oxycodone Hyperlipidemia Hold statin PAD statin, cilostazol on hold dvt ppx - Eliquis on hold due to acute GI bleed Patient requires ongoing inpatient hospital stay for management of GI bleeding and plan for colonoscopy on Tuesday Quality Stroke Does the patient have a stroke diagnosis?: No VTE Prior VTE?: No VTE Risk Level:: Medical - moderate - high VTE Device Contraindication: N/A - Device Ordered VTE Drug Contraindication: Treatment Not Indicated
[2023-09-25 11:21] LABS: Glucose, Whole Blood 121 mg/dL (60-115)
[2023-09-25 11:35] VITALS: BP 139/71; PULSE 79; RESP 18; TEMP 36.2; O2SAT 97
[2023-09-25 15:43] LABS: Glucose, Whole Blood 108 mg/dL (60-115)
[2023-09-25 15:51] VITALS: BP 131/70; PULSE 87; RESP 18; TEMP 36.4; O2SAT 97
[2023-09-25] MEDS: PEG 3350/Na Sulf,Bicarb,Cl/KCL 4,000 ML SOLN.RECON 4000 ML PO (17:19)
[2023-09-25 20:00] VITALS: BP 139/69; PULSE 90; RESP 20; TEMP 36.2; O2SAT 96
[2023-09-25 20:08] LABS: Glucose, Whole Blood 121 mg/dL (60-115)
[2023-09-25] MEDS: Butalb/Acetamin/Caff 50/325/40 TABLET 1 TAB PO (20:23)
[2023-09-26] VITALS (10 sets, daily range): BP systolic 115–147; BP diastolic 61–78; PULSE 79–88; RESP 15–20; TEMP 36.3–36.8; O2SAT 96–100
[2023-09-26] MEDS: 0.9 % Sodium Chloride Flush 3 ML SYRINGE IVFLUSH ×3 (00:24→15:42)
--- NOTE | 2023-09-26 04:20 | PM.EVENT ---
Event Note Date of Service: 09/26/23 Event Note: Contacted by nurse to notify patient's oxygen saturation dropped to the high 70s while sleeping and quickly increases to high 90s while patient is awake. We will order nocturnal CPAP. Time Spent With Patient Time: Total time managing care of this patient today ____ minutes.
[2023-09-26] MEDS: Omeprazole 40 MG CAPSULE.DR PO (05:49)
[2023-09-26] MEDS: Acetaminophen 325 MG TABLET 975 MG PO ×2 (05:53→14:18)
--- NOTE | 2023-09-26 06:01 | PC.NURSE ---
Assumed care of patient at 23:15. Patient is A&Ox4, Welsh speaking. Pipeline Inspector was used at bedside. Pt NPO since midnight per attending note and nursing handoff report for tentative colonoscopy for reported GIB. Pt states her last bloody BM was At home prior to admission. Pt completed 90% of bowel prep before midnight NPO. Patient on RA with continuous spo2 monitoring per order. Patient noted with a few episodes of brief desats to upper 70's to low 80's while sleeping, improved to >95% consistently on waking. Pt denies sob; breathing is even and unlabored without distress. Covering Dr. Adan Fried notified; cpap ordered though when respiratory placed it the patient refused and asked to have it removed immediately. MD notified of this with written order to database report writer for 1L oxymask for desats. Oxymask 1L was placed with +effect, no further incidence of desats; spo2 maintained >95% while asleep. [employer] Software Developer clarified with MD on whether to give or hold scheduled prilosec as not specified for npo/no updated diet orders; MD written orders to given prilosec, taken with small sip of water. Safety measures in place including bed alarm on, using call blackwell after discussing/educating the pt with deaf interpreter (pt had been refusing bed alarm and bedside commode alternative, though educated on safety and importance given monitoring H+H and recently on eliquis).
[2023-09-26 06:44] LABS: Hematocrit 25.8 % (37.0-47.0); Hemoglobin 8.3 g/dl (12.0-16.0); Mean Corpuscular HGB Conc 32.2 g/dl (31.0-35.0); Mean Corpuscular Hemoglobin 28.5 pg (27.0-33.0); Mean Corpuscular Volume 88.7 fL (80.0-98.0); Platelet Count 284 X10*3/uL (160-400); Red Blood Count 2.91 X10*6/uL (4.20-5.50); Red Cell Distribution Width 15.8 % (11.0-16.0); White Blood Count 9.8 X10*3/uL (4.8-10.8)
[2023-09-26 07:28] LABS: Glucose, Whole Blood 104 mg/dL (60-115)
--- NOTE | 2023-09-26 10:32 | MHC.CM.PN ---
Per MD rounds no discharge planned today. GI consult plan is scope today. DP Home with family support and transport. She lives in [facility]. She is visiting her daughter.
[2023-09-26 11:40] LABS: Glucose, Whole Blood 105 mg/dL (60-115)
--- NOTE | 2023-09-26 12:04 | P.PNIM_ITS ---
Subjective Subjective Date of Service: 09/26/23 Interval History: f/u acute Gib, no acitive bleed, H/H stable, hemodynamically stable. Colonoscopy today Note to have drop in O2 when sleeping Physical Exam 2 Vital Signs: Vital Signs: Last Vital Signs Temp 97.6 F 09/26/23 11:44 Pulse 83 09/26/23 11:44 Resp 18 09/26/23 11:44 BP 142/66 H 09/26/23 11:44 Pulse Ox 97 09/26/23 11:44 O2 Del Method Room Air 09/26/23 11:44 O2 Flow Rate 1 09/26/23 07:41 BMI result Body Mass Index 37.2 Objective Data Active Medications Acetaminophen (Acetaminophen 325 Mg Tablet) 975 mg PO Q6H PRN PRN Reason: Pain, Mild (Pain Scale 1-3), fever or headache Last Admin: 09/26/23 05:53 Dose: 975 mg Documented By: ELENA Acetaminophen/Butalbital/Caffeine (Butalb/Acetamin/Caff 50/325/40 Tablet) 1 tab PO Q6H PRN PRN Reason: Headache Last Admin: 09/25/23 20:23 Dose: 1 tab Documented By: TIA Gabapentin (Gabapentin 400 Mg Capsule) 400 mg PO TID [facility] Last Admin: 09/26/23 08:22 Dose: Not Given Documented By: GARCIA Non-Admin Reason: NPO Glucose (Glucose Gel 15 Gm Gel..Gram.) 15 gm PO Q15M PRN; Protocol PRN Reason: per Hypoglycemia Standing Ord. Dextrose (D10) 250 mls @ 750 mls/hr IV Q15M PRN; Protocol PRN Reason: per Hypoglycemia Standing Ord. Insulin Human Lispro (Insulin Lispro 100 Unit/Ml 3 Ml Vial) 0 unit SUBCUT QIDACHS [facility]; Protocol Last Admin: 09/26/23 11:31 Dose: Not Given Documented By: GARCIA Non-Admin Reason: No Insulin Coverage Omeprazole (Omeprazole 40 Mg Capsule.) 40 mg PO DAILY@0630 [facility] Last Admin: 09/26/23 05:49 Dose: 40 mg Documented By: ELENA Oxycodone HCl (Oxycodone Hcl Immed Release 5 Mg Tablet) 5 mg PO Q4H PRN PRN Reason: Pain (Scale Score 4-6) Last Admin: 09/25/23 16:08 Dose: 5 mg Documented By: TIA Sodium Chloride (0.9 % Sodium Chloride Flush 3 Ml Syringe) 3 ml IVFLUSH QSHIFT [facility] Last Admin: 09/26/23 08:21 Dose: 3 ml Documented By: GARCIA Labs 09/26/23 06:14 09/23/23 05:58 Labs: Laboratory Results - last 24 hr 09/25/23 09/25/23 09/26/23 15:31 20:03 06:14 MCV 88.7 MCH 28.5 MCHC 32.2 RDW 15.8 Plt Count 284 MPV 10.0 Absolute Nucleated RBC 0.000 Nucleated RBC % (auto) 0.0 POC Glucose 108 121 H 09/26/23 09/26/23 07:25 11:30 MCV MCH MCHC RDW Plt Count MPV Absolute Nucleated RBC Nucleated RBC % (auto) POC Glucose 104 105 Assessment and Plan (1) Rectal bleeding: Status: Acute (2) Pulmonary embolism: Status: Acute Plan This is 73-year-old French-speaking female visiting from [place] who was recently diagnosed with bilateral PE and bilateral DVT earlier this month at [facility] who presents to the emergency department with 2 weeks of rectal bleeding Acute blood loss anemia due to acute GI bleed In the setting of anticoagulation with Eliquis Eliquis on hold s/p blood transfusion in ED H/H has remained stable continue PPI For colonoscopy today Tuesday09/26/23 Bilateral PE/b/l DVT diagnosed September [address] [facility]. thought to be provoked due to recent travel from [place] per records from [facility] right heart strain Eliquis on hold due to acute GI bleed Seen by vascular surgery, s/p IVC filter placement 09/22 Hypertension Blood pressure has been stable off of home medication hold Norvasc, hydrochlorothiazide, losartan, Lasix T2DM newly diagnosed hba1c 6.8, not on meds at baseline consider d/c with metformin continue SSI coverage ?chronic pain Continue gabapentin, oxycodone Hyperlipidemia Hold statin PAD statin, cilostazol on hold Sleep Apnea with drop in O2 at night, need O2 vs sleep , dvt ppx - Eliquis on hold due to acute GI bleed Patient requires ongoing inpatient hospital stay for management of GI bleeding and plan for colonoscopy on Tuesday Quality Stroke Does the patient have a stroke diagnosis?: No VTE Prior VTE?: No VTE Risk Level:: Medical - moderate - high VTE Device Contraindication: N/A - Device Ordered VTE Drug Contraindication: Treatment Not Indicated
--- NOTE | 2023-09-26 16:31 | MHC.SHP ---
Pre-Procedural Eval Section A - 24 Hr Update-Section A only Date of Service: 09/26/23 The patient is an INPATIENT: Yes The patient has been examined within 24 hours of the surgical procedure. The History & Physical has been completed within 30 days and I have reviewed it.: Yes Section B - Complete if H&P > 30 days Chief Complaint: Lower GI Bleeding Allergies: Allergies Allergy/AdvReac Type Severity Reaction Status Date / Time No Known Allergies Allergy Verified 09/26/23 13:51 [No Known Allergies*] Plan Diagnosis/Plan: Unchanged I have reviewed the history and physical and performed a pertinent physical examination on my patient. No changes have occurred unless specified. Time Spent With Patient Time: Total time managing care of this patient today ____ minutes.
--- NOTE | 2023-09-26 16:32 | P.PNGI_ITS ---
Subjective Subjective Date of Service: 09/26/23 Interval History: no further rectal bleeding no abdominal pain no nausea or vomiting stable since IVC filter Critical Care Time (minutes): 0 Physical Exam 2 Vital Signs: Vital Signs: Last Vital Signs Temp 97.7 F 09/26/23 16:15 Pulse 83 09/26/23 16:15 Resp 18 09/26/23 16:15 BP 147/78 H 09/26/23 16:15 Pulse Ox 98 09/26/23 16:15 O2 Del Method Room Air 09/26/23 16:15 O2 Flow Rate 1 09/26/23 07:41 BMI result Body Mass Index 37.2 EXAM: GENERAL: The patient is well developed and nontoxic. VITAL SIGNS:see workflow HEENT: Nonicteric sclerae, PERRLA, EOMI. Oropharynx clear. Moist mucous membranes. Conjunctivae appear well perfused. No thyroid mass. CHEST: Chest wall is nontender. HEART: Regular rate and rhythm without murmurs. LUNGS: Clear to auscultation bilaterally. ABDOMEN: Soft, positive bowel sounds, nontender, no organomegaly.no flank tenderness SKIN: No rash, no excessive bruising, petechiae, or purpura. NEUROLOGIC: Cranial nerves II-XII intact without motor/sensory deficit. Psych: normal affect Objective Data Labs 09/26/23 06:14 09/23/23 05:58 Labs: Laboratory Results - last 24 hr 09/25/23 09/26/23 09/26/23 20:03 06:14 07:25 WBC 9.8 RBC 2.91 L Hgb 8.3 L Hct 25.8 L MCV 88.7 MCH 28.5 MCHC 32.2 RDW 15.8 Plt Count 284 MPV 10.0 Absolute Nucleated RBC 0.000 Nucleated RBC % (auto) 0.0 POC Glucose 121 H 104 Blood Type Antibody Screen 09/26/23 09/26/23 10:59 11:30 WBC RBC Hgb Hct MCV MCH MCHC RDW Plt Count MPV Absolute Nucleated RBC Nucleated RBC % (auto) POC Glucose 105 Blood Type A Positive Antibody Screen NEGATIVE Procedures Date of Service Date of Service: 09/26/23 Progress Note: A&P Assessment and plan (1) Anemia: Status: Acute (2) Rectal bleeding: Status: Acute Plan 1/ Rectal bleeding and VTE, need to r/o CRC PLAN: 1/ Colonoscopy today--if neg then possible EGD Time Spent With Patient Time: Total time managing care of this patient today ____ minutes. Quality Stroke Does the patient have a stroke diagnosis?: No VTE Prior VTE?: No VTE Risk Level:: Medical - moderate - high VTE Device Contraindication: N/A - Device Ordered VTE Drug Contraindication: Treatment Not Indicated
--- NOTE | 2023-09-26 17:01 | P.CONAN_ITS ---
HPI - Anesthesia Eval Consult details Narrative: 73 yo female patient for Colonoscopy PMFSH Active Problems Active Problems: All Active Problems (Updated 09/23/23 @ 22:48 by Rajesh Barrios MD) Anemia (Acute) Hyperglycemia (Acute) Rectal bleeding (Acute) Pulmonary embolism (Acute) Past Medical History Medical History Hyperlipidemia Essential hypertension Obesity DVT (deep venous thrombosis) Pulmonary embolism Family History Family history of problems with anesthesia: No Surgical History Surgical History History of herniorrhaphy History of Hx of cholecystectomy History of Problems with Anesthesia: No Social History Social History Household Members: Family Housing: House Do you presently have visiting nurse or other home services: No Patient Tobacco Use Status: Never used Tobacco Second Hand Smoke Exposure: No service: No Meds Allergies Allergy/AdvReac Type Severity Reaction Status Date / Time No Known Allergies Allergy Verified 09/26/23 13:51 [No Known Allergies*] Active Medications: Current Medications Acetaminophen (Acetaminophen 325 Mg Tablet) 975 mg PO Q6H PRN PRN Reason: Pain, Mild (Pain Scale 1-3), fever or headache Last Admin: 09/26/23 14:18 Dose: 975 mg Acetaminophen/Butalbital/Caffeine (Butalb/Acetamin/Caff 50/325/40 Tablet) 1 tab PO Q6H PRN PRN Reason: Headache Last Admin: 09/25/23 20:23 Dose: 1 tab Gabapentin (Gabapentin 400 Mg Capsule) 400 mg PO TID COUNT INCLUDES THE [facility] Last Admin: 09/26/23 12:51 Dose: Not Given Glucose (Glucose Gel 15 Gm Gel..Gram.) 15 gm PO Q15M PRN; Protocol PRN Reason: per Hypoglycemia Standing Ord. Dextrose (D10) 250 mls @ 750 mls/hr IV Q15M PRN; Protocol PRN Reason: per Hypoglycemia Standing Ord. Insulin Human Lispro (Insulin Lispro 100 Unit/Ml 3 Ml Vial) 0 unit SUBCUT QIDACHS COUNT INCLUDES THE [facility]; Protocol Last Admin: 09/26/23 11:31 Dose: Not Given Omeprazole (Omeprazole 40 Mg Capsule.Dr) 40 mg PO DAILY@0630 COUNT INCLUDES THE [facility] Last Admin: 09/26/23 05:49 Dose: 40 mg Oxycodone HCl (Oxycodone Hcl Immed Release 5 Mg Tablet) 5 mg PO Q4H PRN PRN Reason: Pain (Scale Score 4-6) Last Admin: 09/25/23 16:08 Dose: 5 mg Sodium Chloride (0.9 % Sodium Chloride Flush 3 Ml Syringe) 3 ml IVFLUSH QSHIFT SRINATH Last Admin: 09/26/23 15:42 Dose: 3 ml Home Medications ?Medication ?Instructions ?Recorded ?Confirmed ?Last Taken ?Type apixaban 5 mg tablet (Eliquis) 5 mg PO BID 09/23/23 09/24/23 Unknown History oxycodone 5 mg tablet 5 mg PO Q4H PRN Pain (Scale Score 09/23/23 09/24/23 Unknown History 4-6) amlodipine 5 mg tablet 5 mg PO DAILY 09/24/23 09/24/23 Unknown History atorvastatin 40 mg tablet 40 mg PO DAILY 09/24/23 09/24/23 Unknown History cilostazol 100 mg tablet 100 mg PO DAILY 09/24/23 09/24/23 Unknown History furosemide 40 mg tablet 40 mg PO DAILY 09/24/23 09/24/23 Unknown History gabapentin 400 mg capsule 400 mg PO TID 09/24/23 09/24/23 Unknown History hydrochlorothiazide 25 mg tablet 25 mg PO DAILY 09/24/23 09/24/23 Unknown H istory losartan 25 mg tablet 25 mg PO DAILY 09/24/23 09/24/23 Unknown History omeprazole 20 mg capsule,delayed 20 mg PO DAILY 09/24/23 09/24/23 Unknown History release tolterodine 1 mg tablet 1 mg PO DAILY 09/24/23 09/24/23 Unknown History Exam Height,Weight and Vital Signs: Height 5 ft 2 in Weight 92.2 kg Last Vital Signs Temp 97.7 F 09/26/23 16:15 Pulse 83 09/26/23 16:15 Resp 18 09/26/23 16:15 BP 147/78 H 09/26/23 16:15 Pulse Ox 98 09/26/23 16:15 O2 Del Method Room Air 09/26/23 16:15 O2 Flow Rate 1 09/26/23 07:41 Pertinent Lab Results Pertinent Lab Results: Laboratory Tests 09/22/23 09/22/23 09/22/23 20:26 22:10 22:33 WBC 8.7 RBC 2.72 L Hgb 7.8 L Hct 23.8 L MCV 87.5 MCH 28.7 MCHC 32.8 RDW 14.8 Plt Count 326 MPV 10.3 Immature Gran % (Auto) 1.4 H Neut % (Auto) 88.1 H Lymph % (Auto) 9.0 L [place] % (Auto) 1.0 L Eos % (Auto) 0.0 Baso % (Auto) 0.5 Lymph # (Auto) 0.8 L [place] # (Auto) 0.1 Eos # (Auto) 0.0 Baso # (Auto) 0.0 Abs Immat Gran (auto) 0.12 H Absolute Neuts (auto) 7.6 Absolute Nucleated RBC 0.000 Nucleated RBC % (auto) 0.0 PT 17.7 H INR 1.5 H Sodium 136 Potassium 3.9 Chloride 105 Carbon Dioxide 18 L Anion Gap 17 BUN 37 H Creatinine 1.12 Estim Creat Clear Calc 45.8 Estimated GFR 47 POC Glucose 252 H Random Glucose 348 H Estimat Average Glucose Hemoglobin A1c % Calcium 9.9 Total Bilirubin 0.5 AST 14 ALT 14 Alkaline Phosphatase 67 Troponin I High Sens 8.3 B-Natriuretic Peptide 13 Total Protein 6.3 L Albumin 3.7 Lipase 28 Stool Occult Blood Blood Type A Positive Antibody Screen NEGATIVE Crossmatch See Detail 09/22/23 09/23/23 09/23/23 23:54 05:58 08:35 WBC 12.8 H RBC 3.14 L Hgb 8.8 L Hct 27.2 L MCV 86.6 MCH 28.0 MCHC 32.4 RDW 15.1 Plt Count 300 MPV 10.1 Immature Gran % (Auto) Neut % (Auto) Lymph % (Auto) [place] % (Auto) Eos % (Auto) Baso % (Auto) Lymph # (Auto) [place] # (Auto) Eos # (Auto) Baso # (Auto) Abs Immat Gran (auto) Absolute Neuts (auto) Absolute Nucleated RBC 0.000 Nucleated RBC % (auto) 0.0 PT INR Sodium 138 Potassium 4.3 Chloride 107 Carbon Dioxide 23 Anion Gap 12 BUN 29 H Creatinine 0.98 Estim Creat Clear Calc 52.4 Estimated GFR 55 POC Glucose 181 H Random Glucose 162 H Estimat Average Glucose 148 Hemoglobin A1c % 6.8 H Calcium 10.2 Total Bilirubin AST ALT Alkaline Phosphatase Troponin I High Sens B-Natriuretic Peptide Total Protein Albumin Lipase Stool Occult Blood POSITIVE Blood Type Antibody Screen Crossmatch 09/23/23 09/23/23 09/23/23 11:01 13:28 16:03 WBC RBC Hgb 8.4 L Hct 25.4 L MCV MCH MCHC RDW Plt Count MPV Immature Gran % (Auto) Neut % (Auto) Lymph % (Auto) [place] % (Auto) Eos % (Auto) Baso % (Auto) Lymph # (Auto) [place] # (Auto) Eos # (Auto) Baso # (Auto) Abs Immat Gran (auto) Absolute Neuts (auto) Absolute Nucleated RBC Nucleated RBC % (auto) PT INR Sodium Potassium Chloride Carbon Dioxide Anion Gap BUN Creatinine Estim Creat Clear Calc Estimated GFR POC Glucose 140 H 108 Random Glucose Estimat Average Glucose Hemoglobin A1c % Calcium Total Bilirubin AST ALT Alkaline Phosphatase Troponin I High Sens B-Natriuretic Peptide Total Protein Albumin Lipase Stool Occult Blood Blood Type Antibody Screen Crossmatch 09/23/23 09/23/23 09/24/23 18:30 20:10 00:08 WBC RBC Hgb 8.6 L 7.9 L Hct 25.8 L 23.8 L MCV MCH MCHC RDW Plt Count MPV Immature Gran % (Auto) Neut % (Auto) Lymph % (Auto) [place] % (Auto) Eos % (Auto) Baso % (Auto) Lymph # (Auto) [place] # (Auto) Eos # (Auto) Baso # (Auto) Abs Immat Gran (auto) Absolute Neuts (auto) Absolute Nucleated RBC Nucleated RBC % (auto) PT INR Sodium Potassium Chloride Carbon Dioxide Anion Gap BUN Creatinine Estim Creat Clear Calc Estimated GFR POC Glucose 183 H Random Glucose Estimat Average Glucose Hemoglobin A1c % Calcium Total Bilirubin AST ALT Alkaline Phosphatase Troponin I High Sens B-Natriuretic Peptide Total Protein Albumin Lipase Stool Occult Blood Blood Type Antibody Screen Crossmatch 09/24/23 09/24/23 09/24/23 06:45 07:39 11:39 WBC 10.6 RBC 2.88 L Hgb 8.2 L Hct 25.0 L MCV 86.8 MCH 28.5 MCHC 32.8 RDW 16.1 H Plt Count 305 MPV 10.1 Immature Gran % (Auto) Neut % (Auto) Lymph % (Auto) [place] % (Auto) Eos % (Auto) Baso % (Auto) Lymph # (Auto) [place] # (Auto) Eos # (Auto) Baso # (Auto) Abs Immat Gran (auto) Absolute Neuts (auto) Absolute Nucleated RBC 0.020 H Nucleated RBC % (auto) 0.2 PT INR Sodium Potassium Chloride Carbon Dioxide Anion Gap BUN Creatinine Estim Creat Clear Calc Estimated GFR POC Glucose 95 129 H Random Glucose Estimat Average Glucose Hemoglobin A1c % Calcium Total Bilirubin AST ALT Alkaline Phosphatase Troponin I High Sens B-Natriuretic Peptide Total Protein Albumin Lipase Stool Occult Blood Blood Type Antibody Screen Crossmatch 09/24/23 09/24/23 09/25/23 15:23 20:37 06:34 WBC 10.0 RBC 2.98 L Hgb 8.5 L Hct 26.2 L MCV 87.9 MCH 28.5 MCHC 32.4 RDW 16.1 H Plt Count 302 MPV 10.0 Immature Gran % (Auto) Neut % (Auto) Lymph % (Auto) [place] % (Auto) Eos % (Auto) Baso % (Auto) Lymph # (Auto) [place] # (Auto) Eos # (Auto) Baso # (Auto) Abs Immat Gran (auto) Absolute Neuts (auto) Absolute Nucleated RBC 0.020 H Nucleated RBC % (auto) 0.2 PT INR Sodium Potassium Chloride Carbon Dioxide Anion Gap BUN Creatinine Estim Creat Clear Calc Estimated GFR POC Glucose 112 145 H Random Glucose Estimat Average Glucose Hemoglobin A1c % Calcium Total Bilirubin AST ALT Alkaline Phosphatase Troponin I High Sens B-Natriuretic Peptide Total Protein Albumin Lipase Stool Occult Blood Blood Type Antibody Screen Crossmatch 09/25/23 09/25/23 09/25/23 07:31 11:15 15:31 WBC RBC Hgb Hct MCV MCH MCHC RDW Plt Count MPV Immature Gran % (Auto) Neut % (Auto) Lymph % (Auto) [place] % (Auto) Eos % (Auto) Baso % (Auto) Lymph # (Auto) [place] # (Auto) Eos # (Auto) Baso # (Auto) Abs Immat Gran (auto) Absolute Neuts (auto) Absolute Nucleated RBC Nucleated RBC % (auto) PT INR Sodium Potassium Chloride Carbon Dioxide Anion Gap BUN Creatinine Estim Creat Clear Calc Estimated GFR POC Glucose 115 121 H 108 Random Glucose Estimat Average Glucose Hemoglobin A1c % Calcium Total Bilirubin AST ALT Alkaline Phosphatase Troponin I High Sens B-Natriuretic Peptide Total Protein Albumin Lipase Stool Occult Blood Blood Type Antibody Screen Crossmatch 09/25/23 09/26/23 09/26/23 20:03 06:14 07:25 WBC 9.8 RBC 2.91 L Hgb 8.3 L Hct 25.8 L MCV 88.7 MCH 28.5 MCHC 32.2 RDW 15.8 Plt Count 284 MPV 10.0 Immature Gran % (Auto) Neut % (Auto) Lymph % (Auto) [place] % (Auto) Eos % (Auto) Baso % (Auto) Lymph # (Auto) [place] # (Auto) Eos # (Auto) Baso # (Auto) Abs Immat Gran (auto) Absolute Neuts (auto) Absolute Nucleated RBC 0.000 Nucleated RBC % (auto) 0.0 PT INR Sodium Potassium Chloride Carbon Dioxide Anion Gap BUN Creatinine Estim Creat Clear Calc Estimated GFR POC Glucose 121 H 104 Random Glucose Estimat Average Glucose Hemoglobin A1c % Calcium Total Bilirubin AST ALT Alkaline Phosphatase Troponin I High Sens B-Natriuretic Peptide Total Protein Albumin Lipase Stool Occult Blood Blood Type Antibody Screen Crossmatch 09/26/23 09/26/23 10:59 11:30 WBC RBC Hgb Hct MCV MCH MCHC RDW Plt Count MPV Immature Gran % (Auto) Neut % (Auto) Lymph % (Auto) [place] % (Auto) Eos % (Auto) Baso % (Auto) Lymph # (Auto) [place] # (Auto) Eos # (Auto) Baso # (Auto) Abs Immat Gran (auto) Absolute Neuts (auto) Absolute Nucleated RBC Nucleated RBC % (auto) PT INR Sodium Potassium Chloride Carbon Dioxide Anion Gap BUN Creatinine Estim Creat Clear Calc Estimated GFR POC Glucose 105 Random Glucose Estimat Average Glucose Hemoglobin A1c % Calcium Total Bilirubin AST ALT Alkaline Phosphatase Troponin I High Sens B-Natriuretic Peptide Total Protein Albumin Lipase Stool Occult Blood Blood Type A Positive Antibody Screen NEGATIVE Crossmatch Airway Mallampati Class: III TM Dist: >3cm Neck ROM: Full Loose/Missing/Broken Teeth: No (Denies broken, loose, missing teeth) Heart: RRR Lungs: CTAB Assessment and Plan Assessment Anesthesia Assessment: Anesthesia Plan Discussed and Chart Reviewed Final Anesthetic Review Family History of Problems with Anesthesia: No History of Problems with Anesthesia: No NPO: Yes ASA Class: III Final Preanesthetic Review: No Changes in Pt Med Stat, Meds/Allgs Chart Reviewed, Consent Obtained/Reviewed and Anes Risks/Benef Reviewed Patient Risk: High Procedure Risk: Low Assessment/Block/Sedation in SS: Assess/Block/Sedation-SS Anesthetic Plan Anesthetic Plan: TIVA Disposition: Standard PACU and Inp. Admit - IMC
--- NOTE | 2023-09-26 17:39 | P.OPN-COLO_ITS ---
Colonoscopy Operative Note Operative Note Date of Service: 09/26/23 Narrative: Operative Information Procedure Description: Colonoscopy Indication: rectal bleeding Anesthesia: MAC COLONOSCOPY Instrument: Olympus variable stiffness pediatric scope 190L Colonoscopy Monitoring: Vital signs and clinical assessment, continuous EKG monitoring, Pulse oximetry, Carbon Dioxide monitoring and blood pressure monitoring were done throughout the procedure. Colon withdrawal time was 15 minutes. Procedure: The patient was placed in the left lateral decubitis position and pre-procedure medications were administered. After a digital rectal examination of the ano-rectum, the video colonoscope was inserted into the rectum and advanced through the colon to the cecum/TI. The colonoscope was slowly withdrawn in a retrograde panoramic fashion and the colon mucosa was carefully examined including a retroflexed view of the rectum. Findings and interventions are described below. Procedure Difficulty: moderate Findings: Terminal Ileum- superficially intubated and appeared normal Cecum:normal Ascending Colon: proximal area, AVM noted treated with APC , moderate diverticulosis Transverse Colon -normal Descending Colon:normal Sigmoid Colon: moderate severe diverticulosis, 4-6 mm sessile polyp lesion removed with cold forceps with one clip applied for hemostasis Rectum: Retroflexion with small to medium inflammed internal hemorrhoids seen, grade I Anorectum - normal Intervention: APC, cold forceps polypectomy, clip Colon preparation: [place] Bowel Preparation Scale Right colon; 2 Transverse colon: 2 Left colon; 2 (0 = Unprepared colon segment with mucosa not seen due to solid stool that cannot be cleared. 1 = Portion of mucosa of the colon segment seen, but other areas of the colon segment not well seen due to staining, residual stool and/or opaque liquid. 2 = Minor amount of residual staining, small fragments of stool and/or opaque liquid, but mucosa of colon segment seen well. 3 = Entire mucosa of colon segment seen well with no residual staining, small fragments of stool or opaque liquid) Impression and Post Procedure Diagnosis: diverticulosis colon polyp internal hemorrhoids AVM bleeding probably from internal hemorrhoids Plan: High fiber diet leaflet Avoid straining at stool, epsom salts and sitz bath, anusol supps or cream Repeat Colonoscopy in 5 years if health allows if polyp is adenomatous, 10 yrs if hyperplastic or earlier if clinically indicated can restart anti coagulation in 2-3 days Above findings were reviewed with the patient and relevant handouts were provided if indicated.
[2023-09-26] MEDS: Gabapentin 400 MG CAPSULE PO (20:24)
[2023-09-26 21:17] LABS: Glucose, Whole Blood 156 mg/dL (60-115)
[2023-09-26] MEDS: Insulin Lispro 100 UNIT/ML 3 ML VIAL SUBCUT (22:05)
--- NOTE | 2023-09-26 23:20 | PC.RT ---
pt placed on overnight pulse oximetry. Sats 95% on RA
[2023-09-27] VITALS: BP 124/70; PULSE 89; RESP 16; TEMP 36.2; O2SAT 96
[2023-09-27] MEDS: 0.9 % Sodium Chloride Flush 3 ML SYRINGE IVFLUSH ×3 (00:04→16:06)
[2023-09-27] MEDS: Acetaminophen 325 MG TABLET 975 MG PO (02:19)
[2023-09-27 04:00] VITALS: BP 134/63; PULSE 89; RESP 16; TEMP 36.4; O2SAT 92
[2023-09-27 05:14] LABS: ABG Base Excess 5.3 mmol/L; ABG HCO3 30 mmol/L (22-26); ABG pCO2 44 mmHg (32-45); ABG pH 7.43 (7.35-7.45); ABG pO2 31 mmHg (83-108)
[2023-09-27 05:33] VITALS: O2SAT 90
[2023-09-27] MEDS: Omeprazole 40 MG CAPSULE.DR PO (05:53)
[2023-09-27 06:30] LABS: ABG Refer to POC result
[2023-09-27 07:38] LABS: Glucose, Whole Blood 91 mg/dL (60-115)
[2023-09-27 08:00] VITALS: BP 148/70; PULSE 86; RESP 18; TEMP 36.7; O2SAT 99
[2023-09-27] MEDS: Gabapentin 400 MG CAPSULE PO ×2 (08:29→16:06)
[2023-09-27 08:59] LABS: Hematocrit 27.5 % (37.0-47.0); Hemoglobin 8.9 g/dl (12.0-16.0); Mean Corpuscular HGB Conc 32.4 g/dl (31.0-35.0); Mean Corpuscular Hemoglobin 28.8 pg (27.0-33.0); Mean Platelet Volume 10.8 fL (9.4-12.3); Platelet Count 265 X10*3/uL (160-400); Red Blood Count 3.09 X10*6/uL (4.20-5.50); Red Cell Distribution Width 15.8 % (11.0-16.0); White Blood Count 9.5 X10*3/uL (4.8-10.8)
[2023-09-27 11:08] LABS: Glucose, Whole Blood 163 mg/dL (60-115)
[2023-09-27 11:26] VITALS: BP 116/65; PULSE 96; RESP 18; TEMP 36.7; O2SAT 98
[2023-09-27] MEDS: Insulin Lispro 100 UNIT/ML 3 ML VIAL SUBCUT (12:05)
--- NOTE | 2023-09-27 12:08 | PM.DS ---
DS: Providers Provider Date of Service: 09/27/23 Date of admission: 09/23/23 02:12 Primary care physician: None Physician Consults: 09/23/23 02:46 Consult to Gastroenterology Routine Consulting Provider: Allyson Hermosillo Reason for consultation: Rectal bleeding Has provider been notified: No 09/23/23 07:36 Consult to Vascular Surgery Routine Consulting Provider: [facility] Reason for consultation: PE on ELiquis/GIB; ?IVC filter Has provider been notified: No DS: Diagnosis Discharge Diagnosis (1) Anemia: Status: Acute (2) Rectal bleeding: Status: Acute DS: Summary Hospital Course Hospital Course: admission hpi Chief Complaint: Chest pain + rectal bleeding Blessing Banuelos is a 73 years old woman with past medical history significant for recent diagnosis of VTE on Eliquis, hyperlipidemia, essential hypertension and PVD presents to the emergency department complaining of severe chest pain associated with shortness of breath that started just started afternoon around 17:00. She reported bright red bleeding per rectum. Denied abdominal pain, nausea or vomiting. She also denied headache, palpitations, dizziness or cough. She denies history of GI bleeding. She underwent a EGD and colonoscopy about 2 years ago only remarkable for polyps that were removed and found not to be nonmalignant. She tobacco smoking, alcohol abuse or illicit drug use. In the ED, she was found to have mild tachycardia. Oxygen saturation is normal on room air. There is no tachypnea or hypotension. Blood workup is significant for low hemoglobin, 7.8. There is no leukocytosis and platelets are normal. INR is 1.5. There are no significant electrolyte imbalances. CO2 is 18, anion gap is normal, BUN is 37 and creatinine 1.2. Glucose is 348. LFTs are normal. BNP and troponin are normal. Chest CTA showed acute pulmonary emboli in the segmental and subsegmental branches of the right medial lower lobe as well as the left lower lobe without right heart strain. ECG showed sinus tachycardia with a heart rate 118 beats per minutes. No acute ischemic changes. ED tx: NS 1 L bolus, pantoprazole 80 mg IV, lispro 5 units subcut, 1 unit PRBC.Chief Complaint: Chest pain + rectal bleeding Blessing Banuelos is a 73 years old woman with past medical history significant for recent diagnosis of VTE on Eliquis, hyperlipidemia, essential hypertension and PVD presents to the emergency department complaining of severe chest pain associated with shortness of breath that started just started afternoon around 17:00. She reported bright red bleeding per rectum. Denied abdominal pain, nausea or vomiting. She also denied headache, palpitations, dizziness or cough. She denies history of GI bleeding. She underwent a EGD and colonoscopy about 2 years ago only remarkable for polyps that were removed and found not to be nonmalignant. She tobacco smoking, alcohol abuse or illicit drug use. In the ED, she was found to have mild tachycardia. Oxygen saturation is normal on room air. There is no tachypnea or hypotension. Blood workup is significant for low hemoglobin, 7.8. There is no leukocytosis and platelets are normal. INR is 1.5. There are no significant electrolyte imbalances. CO2 is 18, anion gap is normal, BUN is 37 and creatinine 1.2. Glucose is 348. LFTs are normal. BNP and troponin are normal. Chest CTA showed acute pulmonary emboli in the segmental and subsegmental branches of the right medial lower lobe as well as the left lower lobe without right heart strain. ECG showed sinus tachycardia with a heart rate 118 beats per minutes. No acute ischemic changes. ED tx: NS 1 L bolus, pantoprazole 80 mg IV, lispro 5 units subcut, 1 unit PRBC. Hospital course Acute blood loss anemia due to acute GI bleed while on Eliquis for pulmonary embolism. Eliquis stopped and and IVC filter was inserted on September 22. She was transfused 2 units of RBC on September 22 and H/H has been stable since. She underwent Colonoscopy on 09/26/23 with the following finding and recommendation by Dr. Hermosillo Impression diverticulosis colon polyp internal hemorrhoids AVM bleeding probably from internal hemorrhoids Plan: High fiber diet leaflet Avoid straining at stool, epsom salts and sitz bath, anusol supps or cream Repeat Colonoscopy in 5 years if health allows if polyp is adenomatous, 10 yrs if hyperplastic or earlier if clinically indicated can restart anti coagulation in 2-3 days will thus start eliquis in 2 days . Bilateral PE/b/l DVT- diagnosed September 02 at [facility]. thought to be provoked due to recent travel from [place] per records [facility] no right heart strain. Eliquis was on hold. Had IVC filter as above. Restart eliquis in 2 days Hypertension --She is been off her BP meds since admission with BPs been relatively normal. Stop Losartan and HCTZ, resume norvasc 5 mg daily and Lasix 40 mg daily T2DM newly diagnosed hba1c 6.8, not on meds at baseline consider d/c with metformin 500 mg daily ?chronic pain Continue gabapentin, oxycodone Hyperlipidemia resume statin PAD statin, cilostazol on hold Hypoxia during sleep with O2 droping into 70s. Qualifies for nocturnal by overnight O2 study and will go home with oxygen to sleep Time Attestation Discharge Coordination Time (in mins): 50 minutes Quality: Safe Use of Opioids Does Pt have an Active Cancer Diagnosis on the Problem List?: No Quality: Stroke Does the patient have a stroke diagnosis?: No Physical Exam Vital Signs: Vital Signs: Last Vital Signs Temp 98.0 F 09/27/23 11:26 Pulse 96 09/27/23 11:26 Resp 18 09/27/23 11:26 BP 116/65 09/27/23 11:26 Pulse Ox 98 09/27/23 11:26 O2 Del Method Room Air 09/27/23 11:26 O2 Flow Rate 1 09/26/23 07:41 BMI result Body Mass Index 37.2 DS: Data Data Completed and Pending Pending studies at discharge: Pending at discharge 09/26/23 18:25 Surgical [PTH] Routine Labs on day of discharge: Laboratory Results - last 24 hr 09/26/23 09/26/23 09/27/23 10:59 21:13 05:04 WBC RBC Hgb Hct MCV MCH MCHC RDW Plt Count MPV Absolute Nucleated RBC Nucleated RBC % (auto) O2 Saturation 46.0 ABG pH at Pt Temp 7.43 ABG pCO2 at Pt Temp 44 ABG pO2 at Pt Temp 31 L* ABG HCO3 30 H ABG Base Excess (Actual) 5.3 POC Glucose 156 H Blood Type A Positive Antibody Screen NEGATIVE 09/27/23 09/27/23 09/27/23 07:33 07:38 11:04 WBC 9.5 RBC 3.09 L Hgb 8.9 L Hct 27.5 L MCV 89.0 MCH 28.8 MCHC 32.4 RDW 15.8 Plt Count 265 MPV 10.8 Absolute Nucleated RBC 0.000 Nucleated RBC % (auto) 0.0 O2 Saturation ABG pH at Pt Temp ABG pCO2 at Pt Temp ABG pO2 at Pt Temp ABG HCO3 ABG Base Excess (Actual) POC Glucose 91 163 H Blood Type Antibody Screen Discharge Plan Discharge Anticipated Discharge Date/Time: 09/27/23 11:52 Patient Disposition: Home, Self-Care Discharge Diagnosis: GI bleeding, acute blood loss anemia, PE, diabetes Referrals: Physician,None [Primary Care Provider] - 1 Week Discharge Medications: New metformin 500 mg Tablet 500 mg PO DAILY Qty: 90 0RF docusate sodium [Colace] 100 mg capsule 100 mg PO BID Qty: 180 0RF (DME) FreeStyle Lite Strips Strip Qty: 100 0RF Rx Instructions: Test four times a day or as directed. (DME) blood-glucose meter [FreeStyle Lite Meter] Kit Qty: 1 0RF Rx Instructions: As Directed 4 times a day alcohol swabs Pads, Medicated 1 pad TOPICAL QIDACHS Qty: 100 0RF Rx Instructions: Use four times a day or as directed. (DME) lancets [FreeStyle Lancets] 28 gauge misc Qty: 100 0RF Rx Instructions: Test four times a day or as directed. Continued oxycodone 5 mg tablet 5 mg PO Q4H PRN (Reason: Pain (Scale Score 4-6)) atorvastatin 40 mg Tablet 40 mg PO DAILY cilostazol 100 mg Tablet 100 mg PO DAILY tolterodine 1 mg Tablet 1 mg PO DAILY amlodipine 5 mg Tablet 5 mg PO DAILY furosemide 40 mg Tablet 40 mg PO DAILY gabapentin 400 mg Capsule 400 mg PO TID omeprazole 20 mg Capsule,Delayed Release(Dr/Ec) 20 mg PO DAILY Held Eliquis 5 mg tablet 5 mg PO BID Hold Instructions: Resume on 09/29/23. Discontinued hydrochlorothiazide 25 mg Tablet 25 mg PO DAILY losartan 25 mg Tablet 25 mg PO DAILY Discharge Orders: Discharge Order (Routine); Ordered 09/27/23 Ordered By: Vj Sands Diet: Diabetic diet Activity on Discharge: As tolerated Stand Alone Forms: Patient Portal Discharge page Print Language: Croatian Care Plan Goals: recovery from anemia, gi bleeding, sleep apnea management Health Concerns: GI bleeding Anemia pulmonary embolism hemorrhoid sleep apnea diabetes Plan of Treatment: resume eliquis, if you notice blood in stool again this may need to be stopped Use Oxygen for sleep take Metofmrin for high blood sugars, and check your sugar before meals or at least in the morning follow up with your primary care doctor Eat high fiber diet as below use sits bath as below Assessment: see above Patient Instructions: High Fiber Diet (DC), Sitz Bath (DC)
[2023-09-27] MEDS: oxyCODONE HCl Immed Release 5 MG TABLET PO (12:39)
--- NOTE | 2023-09-27 12:42 | W.MHC.F2F ---
Service Date Service Date: 09/27/23 Encounter Date of encounter: 09/27/23 Reasons for Services Signs and symptoms assessed: Weakness from recent hospialization, PE and anemia needing transfusion Reason for [facility]: medication management and teach disease management Homebound: Leaving the home is medically contraindicated at this time without the asist of a device and/or another person due th the listed conditions above and below. Reason homebound: weakness related to hospital stay Homebound supporting statement: homebound due t weakness related to hospialization, anemia, pulmonary embolism and therefore will need the assitance of another person Certification: Based on the above findings, I certify that this patient is confined to the home and needs intermittent [facility] care, physical therapy and/or speech therapy, or continues to need occupational therapy. The patient is under my care, and I have initiated the establishment of the plan of care. The patient will be followed by a physician who will periodically review the plan of care. Time Spent With Patient Time: Total time managing care of this patient today ____ minutes.
--- NOTE | 2023-09-27 12:52 | PC.NURSE ---
Tolerated breakfast and lunch , no n/v, 1/2 hr ago started to have right lower quad/ right groin pain . Right groin :IVC filter insertion site dry and intact, no redness ,no drainage , no bleeding. Medocated with Oxycodone 5 mg PO , DR Singh was notified , continue to monitor
[2023-09-27] MEDS: amLODIPine Besylate 5 MG TABLET PO (13:29)
[2023-09-27] MEDS: metFORMIN HCl 500 MG TABLET PO (13:29)
--- NOTE | 2023-09-27 13:36 | HO.POSTANES ---
Post Anesthesia Evaluation Post Anesthesia Evaluation Date of Service: 09/26/23 Vital Signs: Vital Signs Temp Pulse Resp BP Pulse Ox O2 Del Method 09/27/23 11:26 98.0 F 96 18 116/65 98 Room Air 09/27/23 08:00 98.1 F 86 18 148/70 H 99 Room Air 09/27/23 04:00 97.6 F 89 16 134/63 92 Room Air Anesthesia: Monitored Mental Status: Awake Pain Control: Satisfactory Nausea/Vomiting: None Hydration: Adequate Anesthesia-Related Issues: No Anes. Related Issues
--- NOTE | 2023-09-27 14:05 | MHC.CM.PN ---
Pt is medically cleared for discharge home with family support, pts family to transport her home.
[2023-09-27 14:09] LABS: Anion Gap 12 (12-20); Blood Urea Nitrogen 11 mg/dL (9-16); Calcium 9.2 mg/dL (8.4-10.2); Carbon Dioxide 22 mmol/L (22-29); Chloride 108 mmol/L (96-108); Creatinine Clr Calc Pharmacy 57.7; Estimated Glomerular Filt Rate > 60; Glucose Random 175 mg/dL (60-115); Potassium 3.6 mmol/L (3.3-5.1); Sodium 138 mmol/L (135-145)
[2023-09-27 16:00] LABS: Glucose, Whole Blood 102 mg/dL (60-115)
[2023-09-27 16:25] VITALS: BP 134/63; PULSE 96; RESP 18; TEMP 37.2; O2SAT 97
== END 2023-09-27 17:30 | disposition home or self-care (01) | DRG 377 ==
LOC: HO.ED 21:21 → HO.EDOVER 09-23 02:17 → HO.IMC 09-23 04:49
PROVIDERS: Internal Medicine Gastroenterology; Physician Assistant Medical; Surgery Vascular Surgery; Admitting Provider Internal Medicine; Emergency Provider Internal Medicine; Visit Provider Internal Medicine
PROC: 0DJD8ZZ Inspection of Lower Intestinal Tract, Via Natural or Artificial Opening Endoscopic (ICD-10-PCS; CPT 45378; principal; 2023-09-26 16:10)
DX: K55.21 Angiodysplasia of colon with hemorrhage (principal); I26.94 Multiple subsegmental thrombotic pulmonary emboli without acute cor pulmonale; I26.99 Other pulmonary embolism without acute cor pulmonale; D62 Acute posthemorrhagic anemia; K64.0 First degree hemorrhoids; K57.31 Diverticulosis of large intestine without perforation or abscess with bleeding; K63.5 Polyp of colon; I10 Essential (primary) hypertension; E78.5 Hyperlipidemia, unspecified; G89.29 Other chronic pain; E11.65 Type 2 diabetes mellitus with hyperglycemia; E11.51 Type 2 diabetes mellitus with diabetic peripheral angiopathy without gangrene; E66.01 Morbid (severe) obesity due to excess calories; Z86.718 Personal history of other venous thrombosis and embolism; Z68.37 Body mass index [BMI] 37.0-37.9, adult; Z79.01 Long term (current) use of anticoagulants; Z79.84 Long term (current) use of oral hypoglycemic drugs; Z79.899 Other long term (current) drug therapy
CPT/HCPCS: 36415; 36600; 37191; 71045; 71275; 80048; 80053; 82272; 82803; 82947; 83036; 83690; 83880; 84484; 85014; 85018; 85025; 85027; 85610; 86850; 86900; 86901; 86923; 88305; 93005; 99285; C1769; C1880; C9113; J2704; P9016; Q9967

== ENCOUNTER → 2023-09-22 20:01 | Outpatient (BNV) | payer MEDICARE, SELFPAY | PROVIDERS: Admitting Provider Internal Medicine; Emergency Provider Internal Medicine; Visit Provider Internal Medicine Cardiovascular Disease | DX: R07.9 Chest pain, unspecified (principal) | CPT/HCPCS: 93010 ==

== ENCOUNTER → 2023-09-23 02:12 | Outpatient (BNV) | payer MEDICARE, SELFPAY | PROVIDERS: Admitting Provider Internal Medicine; Emergency Provider Internal Medicine; Visit Provider Internal Medicine | DX: I26.99 Other pulmonary embolism without acute cor pulmonale (principal); E11.65 Type 2 diabetes mellitus with hyperglycemia; K62.5 Hemorrhage of anus and rectum | CPT/HCPCS: 99223; 99232; 99233; 99239; 99499; G0180 ==

== ENCOUNTER → 2023-09-23 02:12 | Outpatient (BNV) | payer MEDICARE, SELFPAY | PROVIDERS: Admitting Provider Internal Medicine; Emergency Provider Internal Medicine; Visit Provider Internal Medicine Gastroenterology | DX: K62.5 Hemorrhage of anus and rectum (principal); D64.9 Anemia, unspecified; K55.20 Angiodysplasia of colon without hemorrhage; K63.5 Polyp of colon; K57.90 Diverticulosis of intestine, part unspecified, without perforation or abscess without bleeding; K64.0 First degree hemorrhoids | CPT/HCPCS: 45380; 45388; 99223; 99232 ==

== ENCOUNTER → 2023-09-23 02:12 | Outpatient (BNV) | payer MEDICARE, SELFPAY | PROVIDERS: Admitting Provider Internal Medicine; Emergency Provider Internal Medicine; Visit Provider Surgery Vascular Surgery | DX: I26.99 Other pulmonary embolism without acute cor pulmonale (principal); I82.403 Acute embolism and thrombosis of unspecified deep veins of lower extremity, bilateral | CPT/HCPCS: 37191; 99222 ==